=== PATIENT | female | born 1935 | race Caucasian/White ===

== ENCOUNTER → 2016-12-04 | Outpatient (CLI) | payer MEDICARE, OTHER ==
[2016-12-04 18:37] LABS: Basophils % (A) 1 %; CHCM 31.2; Eosinophils # (A) 0.1 k/uL (0-0.7); Eosinophils % (A) 1 %; HCT 34.4 % (34.0-46.0); HDW 2.76; HGB 10.2 gm/dL (11.4-16.0); Hypochromasia Slight; Luc % (Auto) 2; Lymphocytes # (A) 0.5 k/uL (1.0-4.8); Lymphocytes % (A) 8 %; MCH 30.6 pg (25.0-35.0); MCHC 29.7 g/dL (31.0-37.0); Macrocytosis Slight; Mean Platelet Volume 8.4; Monocytes # (A) 0.5 k/uL (0-1.0); Monocytes % (A) 8 %; Neutrophils # (A) 4.8 k/uL (1.3-7.7); Neutrophils % (A) 81 %; RBC 3.34 m/uL (3.80-5.40); RDW 14.4 % (11.5-15.5); WBC (Perox) 6.09
[2016-12-04 18:41] LABS: Uric Acid 9.6 mg/dL (3.7-7.4)
[2016-12-04 19:23] LABS: Erythrocyte Sedimentation Rate 107 mm/hr (0-20)
== END | disposition home or self-care (01) ==
LOC: LABMAIN 17:38
PROVIDERS: ATTEND Internal Medicine Hematology & Oncology
DX: E78.5 Hyperlipidemia, unspecified (principal); I10 Essential (primary) hypertension; E11.9 Type 2 diabetes mellitus without complications; I25.2 Old myocardial infarction
CPT/HCPCS: 36415; 83615; 84550; 85025; 85652

== ENCOUNTER → 2016-12-12 | Outpatient (CLI) | payer MEDICARE, OTHER ==
--- NOTE | 2016-12-14 16:03 | PE ---
Nuclear medicine PET/CT HISTORY: Hodgkin's lymphoma Patient received 11.8 mCi F-18 FDG intravenously. Delayed scanning performed from the skull base to t he mid thighs. Localization and attenuation correction CT scan was performed. No comparisons Neck and chest: Retro pectoral nodules are large on the right measuring 4 and 3 cm with greatest SUV approximately 9.3, there additional large axillary masses, the largest measuring 5.6 cm., SUV 17 8 Ex tensive superior mediastinal, mediastinal and hilar adenopathy is present bilaterally. SUV 9-10. Ther e is a left pleural effusion. Nodular density present in the right lower lobe measures 18 mm in the s ubpleural location, SUV 4.2, some smaller nodularity also present in the subpleural location without corresponding hypermetabolic uptake, in the subpleural location in the right middle lobe there is a n odule measuring 12 mm, SUV only 2.5. Some nodularity the left lung base adjacent to the pleural effus ion is present, there is prominence of the interstitium. Subpleural density in the left upper lobe an terolaterally measures 2.8 cm, SUV 5.2. There is emphysematous change within the lungs. Abdomen pelvis: In the portal region there are some soft tissue nodules present which are ill-defined , SUV is 4.6. Right lower quadrant hypermetabolic uptake may be related to colonic activity. IMPRESSION: Extensive adenopathy as described.
== END | disposition home or self-care (01) ==
LOC: RADPETMAIN 11:10
PROVIDERS: ATTEND Internal Medicine Hematology & Oncology
DX: C81.90 Hodgkin lymphoma, unspecified, unspecified site (principal); R59.1 Generalized enlarged lymph nodes
CPT/HCPCS: 78815; A9552

== ENCOUNTER 2016-12-18 17:53 | Inpatient (IN) | payer MEDICARE, OTHER ==
[2016-12-18] MEDS ORDERED: NITROGLYCERIN OINT 1 INCH/GM PACKET TOPICAL STA (18:23)
[2016-12-18] MEDS ORDERED: FUROSEMIDE 10 MG/ML 4 ML VIAL IV STA (18:23)
[2016-12-18] MEDS ORDERED: ASPIRIN 81 MG CHEW PO STA (18:25)
--- NOTE | 2016-12-18 18:32 | ED ---
SOB HPI - General Chief Complaint: Shortness of Breath Stated Complaint: Congestion Time Seen by Provider: 12/18/16 18:13 Source: patient, family Mode of arrival: wheelchair Limitations: no limitations - History of Present Illness Initial Comments: This 81-year-old white female presents with a complaint of difficulty in breathing. This has been present for approximately 4 days and has progressively worsened. She has had some exertional dyspnea as well as cough with slight whitish production and decreased energy. They complain of some lower extremity edema. She has had a 7 pound weight gain in the last 4 days. She saw her primary care physician 4 days ago and some blood work was done. Her creatinine apparently was 2.0 and her blood sugar was low. They apparently stopped her glipizide. Her blood pressure also was low and they stopped her blood pressure medications but it has subsequently increased. She apparently has a history of Hodgkin's lymphoma which was diagnosed on November 272016 via biopsy from a lesion in the right proximal arm. They have been following up with Dr. Gutiérrez from oncology. She just had a PET scan this past Wednesday with unknown results. She denies any fevers or chest pains. No other complaints or modifying factors. She does not have a history of DVT or PE. - Related Data Home Medications Medication Instructions Recorded Confirmed Isosorbide Mononitrate ER [Imdur] 30 mg PO DAILY 12/18/16 12/18/16 Lisinopril [Zestril] 2.5 mg PO Q48H 12/18/16 12/18/16 Loratadine [Claritin] 10 mg PO DAILY 12/18/16 12/18/16 Metoprolol Succinate (ER) [Toprol 50 mg PO DAILY 12/18/16 12/18/16 Xl] Pioglitazone [Actos] 30 mg PO DAILY 12/18/16 12/18/16 Simvastatin [Zocor] 20 mg PO HS 12/18/16 12/18/16 glipiZIDE [Glucotrol] 5 mg PO AC-BRKFST 12/18/16 12/18/16 Allergies Allergy/AdvReac Type Severity Reaction Status Date / Time No Known Allergies Allergy Verified 12/18/16 18:36 Review of Systems ROS Statement: Those systems with pertinent positive or pertinent negative responses have been documented in the HPI. ROS Other: All systems not noted in ROS Statement are negative. Past Medical History Past Medical History: Cancer, Heart Failure, Diabetes Mellitus, Hyperlipidemia, Hypertension, Myocardial Infarction ([place]) Additional Past Medical History / Comment(s): Hodgkins lymphoma History of Any Multi-Drug Resistant Organisms: None Reported Past Surgical History: Heart Catheterization With Stent Past Psychological History: No Psychological Hx Reported Smoking Status: Former smoker Past Alcohol Use History: None Reported Past Drug Use History: None Reported General Exam - General Exam Comments Initial Comments: GENERAL: The patient is well nourished and well hydrated. VITAL SIGNS: Heart rate, blood pressure, respiratory rate reviewed as recorded in nurse's notes. EYES: Pupils are round and reactive. Extraocular movements are intact. No conjunctival / lid redness or swelling. ENT: No external evidence of injury, swelling, or ecchymosis. Airway is patent. Throat is clear. NECK: Nontender. No swelling or evidence of injury. No subcutaneous emphysema. Trachea is midline. No thyroid mass. HEART: Regular rate and rhythm. Good peripheral pulses. There is some very minimal lower extremity edema noted bilaterally. LUNGS/CHEST: Breath sounds clear and equal bilaterally. No rales, rhonchi, or wheezes. No ecchymosis, subcutaneous emphysema, or tenderness. ABDOMEN: Abdomen soft without tenderness. No palpable masses or organomegaly. No peritoneal signs. No abdominal wall swelling or ecchymosis. EXTREMITIES: No extremity tenderness. Normal muscle tone and function. No thoracolumbar tenderness. NEUROLOGIC: Sensation is grossly intact. Cranial nerve exam reveals face is symmetrical, tongue is midline, speech is clear. SKIN: No abrasions or ecchymosis is noted. No induration or masses noted. PSYCHIATRIC: Alert and oriented. Appropriate behavior and judgment. Limitations: no limitations Course Vital Signs 12/18/16 12/18/16 17:58 19:19 Temperature 97.5 F L Pulse Rate 66 71 Respiratory 18 18 Rate Blood Pressure 121/58 141/96 O2 Sat by Pulse 85 L 92 L Oximetry Medical Decision Making - Medical Decision Making The patient was seen and examined. All diagnostics were reviewed. An EKG was done which shows a normal sinus rhythm at a rate of 71 with occasional PVC noted. There is no acute ST-T wave changes identified. The AK interval is 142 , QRS duration is 102, and the QTc interval is 443. Her pulse ox was quite low at 85% but did come up to 97% on oxygen. Her blood pressure was elevated at 182 /80. She is ordered aspirin as well as Nitropaste and some Lasix. The chest x- ray came back showing some infiltrate of changes with likely congestive heart failure and effusions. It is felt that this likely is more congestive heart failure but the possibility of underlying pneumonia cannot be ruled out. Levaquin is initiated. The laboratory has multiple abnormalities. She has not 8 much recently and her blood sugar was quite low at 43 and she receives 1 amp of D50. The d-dimer was elevated but her creatinine was elevated as well so IV dye was avoided and the computed tomography scan via PE protocol was not completed. Instead, she receives Lovenox and we will order a VQ scan for the a.m. The BNP is significantly elevated consistent with congestive heart failure. The recent PET scan was reviewed and this shows significant lymphadenopathy. Overall, it is felt as though the patient would require admission to the hospital for further treatment. Approximately 30 minutes critical care was utilized and the treatment of the patient. Case was discussed with Dr. Gonzalez from internal medicine and he is agreeable to admission. - Lab Data Result diagrams: 12/18/16 18:36 12/18/16 18:36 Lab Results 12/18/16 12/18/16 12/18/16 Range/Units 18:36 18:36 18:36 WBC 8.9 (3.8-10.6) k/uL RBC 3.35 L (3.80-5.40) m/uL Hgb 10.4 L (11.4-16.0) gm/dL Hct 32.3 L (34.0-46.0) % MCV 96.3 D (80.0-100.0) fL MCH 31.0 (25.0-35.0) pg MCHC 32.2 (31.0-37.0) g/dL RDW 15.4 (11.5-15.5) % Plt Count 385 (150-450) k/uL Neutrophils % 94 % Lymphocytes % 2 % Monocytes % 3 % Eosinophils % 1 % Basophils % 0 % Neutrophils # 8.3 H (1.3-7.7) k/uL Lymphocytes # 0.2 L (1.0-4.8) k/uL Monocytes # 0.2 (0-1.0) k/uL Eosinophils # 0.1 (0-0.7) k/uL Basophils # 0.0 (0-0.2) k/uL PT (9.0-12.0) sec INR (<1.1) APTT (22.0-30.0) sec D-Dimer (<0.60) mg/L FEU Sodium 128 L (137-145) mmol/L Potassium 5.0 (3.5-5.1) mmol/L Chloride 89 L (98-107) mmol/L Carbon Dioxide 29 (22-30) mmol/L Anion Gap 10 mmol/L BUN 49 H (7-17) mg/dL Creatinine 1.52 H (0.52-1.04) mg/dL Est GFR (MDRD) Af Amer 40 (>60 ml/min/1.73 sqM) Est GFR (MDRD) Non-Af 33 (>60 ml/min/1.73 sqM) Glucose 43 L* (74-99) mg/dL Calcium 12.2 H (8.4-10.2) mg/dL Magnesium 2.1 (1.6-2.3) mg/dL Total Bilirubin 0.7 (0.2-1.3) mg/dL AST 33 (14-36) U/L ALT 23 (9-52) U/L Alkaline Phosphatase 83 (38-126) U/L Total Creatine Kinase 35 (30-135) U/L CK-MB (CK-2) 1.9 (0.0-2.4) ng/mL CK-MB (CK-2) Rel Index 5.4 Troponin I 0.024 (0.000-0.034) ng/mL NT-Pro-B Natriuret Pep pg/mL Total Protein 7.3 (6.3-8.2) g/dL Albumin 3.1 L (3.5-5.0) g/dL 12/18/16 12/18/16 Range/Units 18:36 18:36 WBC (3.8-10.6) k/uL RBC (3.80-5.40) m/uL Hgb (11.4-16.0) gm/dL Hct (34.0-46.0) % MCV (80.0-100.0) fL MCH (25.0-35.0) pg MCHC (31.0-37.0) g/dL RDW (11.5-15.5) % Plt Count (150-450) k/uL Neutrophils % % Lymphocytes % % Monocytes % % Eosinophils % % Basophils % % Neutrophils # (1.3-7.7) k/uL Lymphocytes # (1.0-4.8) k/uL Monocytes # (0-1.0) k/uL Eosinophils # (0-0.7) k/uL Basophils # (0-0.2) k/uL PT 12.8 H (9.0-12.0) sec INR 1.3 (<1.1) APTT 18.9 L (22.0-30.0) sec D-Dimer 1.23 H (<0.60) mg/L FEU Sodium (137-145) mmol/L Potassium (3.5-5.1) mmol/L Chloride (98-107) mmol/L Carbon Dioxide (22-30) mmol/L Anion Gap mmol/L BUN (7-17) mg/dL Creatinine (0.52-1.04) mg/dL Est GFR (MDRD) Af Amer (>60 ml/min/1.73 sqM) Est GFR (MDRD) Non-Af (>60 ml/min/1.73 sqM) Glucose (74-99) mg/dL Calcium (8.4-10.2) mg/dL Magnesium (1.6-2.3) mg/dL Total Bilirubin (0.2-1.3) mg/dL AST (14-36) U/L ALT (9-52) U/L Alkaline Phosphatase (38-126) U/L Total Creatine Kinase (30-135) U/L CK-MB (CK-2) (0.0-2.4) ng/mL CK-MB (CK-2) Rel Index Troponin I (0.000-0.034) ng/mL NT-Pro-B Natriuret Pep 01842 pg/mL Total Protein (6.3-8.2) g/dL Albumin (3.5-5.0) g/dL Disposition Clinical Impression: Congestive heart failure, Pleural effusion, Acute respiratory failure, Hypoglycemia, Hyponatremia, Hypochloremia, Hypertension, Pneumonia, Elevated d- dimer, Hodgkins lymphoma, Anemia, Renal insufficiency, Hypochloremia Disposition: ADMITTED IP TO THIS HOSP Condition: Fair Time of Disposition: 19:43 Decision Date: 12/18/16 Decision Time: 19:43
[2016-12-18 18:50] LABS: Basophils % (A) 0 %; CH 31.6; Eosinophils # (A) 0.1 k/uL (0-0.7); Eosinophils % (A) 1 %; HCT 32.3 % (34.0-46.0); HDW 3.11; HGB 10.4 gm/dL (11.4-16.0); Luc # (Auto) 0.09; Luc % (Auto) 1; Lymphocytes # (A) 0.2 k/uL (1.0-4.8); Lymphocytes % (A) 2 %; MCHC 32.2 g/dL (31.0-37.0); Mean Platelet Volume 6.7; Monocytes # (A) 0.2 k/uL (0-1.0); Monocytes % (A) 3 %; Neutrophils # (A) 8.3 k/uL (1.3-7.7); Neutrophils % (A) 94 %; RBC 3.35 m/uL (3.80-5.40); RDW 15.4 % (11.5-15.5); WBC 8.9 k/uL (3.8-10.6); WBC (Perox) 9.55
[2016-12-18 18:53] LABS: MCV 96.3 fL (80.0-100.0)
[2016-12-18 18:59] LABS: INR 1.3 (<1.1); Prothrombin Time 12.8 sec (9.0-12.0)
[2016-12-18 19:04] LABS: Calcium 12.2 mg/dL (8.4-10.2); Magnesium 2.1 mg/dL (1.6-2.3); Total Bilirubin 0.7 mg/dL (0.2-1.3); Total Protein 7.3 g/dL (6.3-8.2)
--- NOTE | 2016-12-18 19:07 | XR ---
EXAMINATION TYPE: XR chest 2V DATE OF EXAM: 12/18/2016 6:57 PM COMPARISON: NONE HISTORY: Difficulty breathing and cough TECHNIQUE: Frontal and lateral views of the chest are obtained. FINDINGS: There are extensive bilateral pulmonary infiltrates with coalescent density in the left lo wer lobe. Heart is probably enlarged. Thoracic aorta is atheromatous. There is blunting of left costo phrenic angle. There is slight blunting also right costophrenic angle. Thoracic spine is intact. IMPRESSION: Bilateral pneumonic infiltrates and worse in the left lower lobe and lingula left upper lobe. Heart failure cannot be excluded. Atherosclerotic vascular disease. Bilateral pleural effusions enlarger on the left side.
[2016-12-18 19:11] LABS: Partial Thromboplastin Time 18.9 sec (22.0-30.0)
[2016-12-18] MEDS: DEXTROSE 50%-WATER 50 ML SYRINGE IVP STA (19:13)
[2016-12-18 19:20] LABS: Creatine Kinase MB 1.9 ng/mL (0.0-2.4); Troponin I 0.024 ng/mL (0.000-0.034)
[2016-12-18] MEDS ORDERED: LEVOFLOXACIN 750MG-D5W PMX 750 MG in DEXTROSE/WATER 1 150ML.BAG IVPB STA (19:33)
[2016-12-18] MEDS ORDERED: ENOXAPARIN 60 MG/0.6 ML SYRINGE SQ STA (19:34)
[2016-12-18] MEDS ORDERED: ASPIRIN 325 MG TAB PO STA (19:44)
[2016-12-18 20:11] LABS: Hemoglobin A1C 7.9 % (4.2-6.1)
[2016-12-18] MEDS: IPRATROPIUM-ALBUTEROL 3 ML NEB INHALATION SCH (20:22)
[2016-12-18 20:33] LABS: Glucose,Whole Blood 170 mg/dL (75-99)
[2016-12-18] MEDS: INSULIN LISPRO (humaLOG) 300 UNIT/3 ML VIAL SQ SCH (23:48)
[2016-12-19] MEDS: IPRATROPIUM-ALBUTEROL 3 ML NEB INHALATION SCH ×6 (00:13→19:25)
[2016-12-19] MEDS: NITROGLYCERIN OINT 1 INCH/GM PACKET TOPICAL SCH ×2 (00:16→08:47)
[2016-12-19] MEDS: ATORVASTATIN 10 MG TAB PO SCH ×2 (00:16→22:15)
[2016-12-19 03:03] LABS: Creatine Kinase MB 1.7 ng/mL (0.0-2.4); Troponin I 0.024 ng/mL (0.000-0.034)
[2016-12-19] MEDS: FUROSEMIDE 10 MG/ML 4 ML VIAL IV SCH ×2 (06:06→17:30)
[2016-12-19 07:17] LABS: Glucose,Whole Blood 40 mg/dL (75-99)
[2016-12-19 07:26] LABS: Glucose,Whole Blood 46 mg/dL (75-99)
[2016-12-19] MEDS: INSULIN LISPRO (humaLOG) 300 UNIT/3 ML VIAL SQ SCH ×4 (07:40→22:15)
[2016-12-19] MEDS: DEXTROSE 50%-WATER 50 ML SYRINGE IVP STA (07:42)
[2016-12-19 07:55] LABS: Creatine Kinase MB 1.9 ng/mL (0.0-2.4); Troponin I 0.024 ng/mL (0.000-0.034)
[2016-12-19 08:26] LABS: Glucose,Whole Blood 122 mg/dL (75-99)
[2016-12-19] MEDS: METOPROLOL SUCCINATE (ER) 50 MG TAB.ER.24H PO SCH (08:47)
[2016-12-19] MEDS: ENOXAPARIN 60 MG/0.6 ML SYRINGE SQ SCH (08:47)
[2016-12-19] MEDS: LORATADINE 10 MG TAB PO SCH (08:47)
--- NOTE | 2016-12-19 09:49 | NM ---
EXAMINATION TYPE: NM pul vent and perfuse DATE OF EXAM: 12/19/2016 9:43 AM COMPARISON: Radiographs 12/18/2016 HISTORY: 81-year-old male with shortness of breath TECHNIQUE: Utilizing inhalation of 64.1 mCi Tc 99m DTPA aerosol and intravenous injection of 4.9 mCi of Tc 99m MAA, ventilation and perfusion images are acquired post injection in multiple projections. FINDINGS: There is marked heterogeneity in ventilation and perfusion with a number of small to moderate size ma tched ventilation and perfusion defects on both sides and relatively less ventilation and perfusion t hroughout the entire left lung. Correlating with the chest radiograph, there is also a triple matched defect at the left base due to the presence of a pleural effusion. IMPRESSION: Intermediate probability for pulmonary embolus based on PIOPED 2 criteria.
--- NOTE | 2016-12-19 10:20 | CONS ---
DATE OF CONSULTATION: Attending Dr. Merida. Mrs. Mckenzie is an 81-year-old female with known history of coronary artery disease, status post anterior myocardial infarction about 20 years ago, history of ischemic cardiomyopathy that has been stable, who in November of this year was diagnosed with non-Hodgkin lymphoma has been followed by Dr. Gutiérrez, underwent PET scan a week ago and is scheduled to be seen by Dr. Gutiérrez next Wednesday for further evaluation. She presented to the emergency room with symptoms of progressive dyspnea, cough and weight gain. She denies any chest pain. She denies any dizziness or palpitations. She has some peripheral edema. No clear PND or orthopnea. Prior to this event, she has been doing reasonably well from the cardiac standpoint. She has a history of aortic stenosis, that has been stable. She has no history of malignant arrhythmia or recent admission for congestive heart failure. Her coronary risk factors are positive for history of hypertension, hyperlipidemia, and diabetes mellitus. She is a nonsmoker. Her medications include isosorbide mononitrate 30 mg daily, lisinopril 2.5 mg q.48 hours, loratadine, metoprolol succinate 50 mg daily, glipizide, Actos and simvastatin. REVIEW OF SYSTEMS: RESPIRATORY SYSTEM: She has dyspnea and mild cough. No fever. GI SYSTEM: No recent GI bleeding. No peptic ulcer disease. SYSTEM: No dysuria or hematuria. NERVOUS SYSTEM: No stroke or seizure. CONSTITUTIONAL SYMPTOMS: She had weight loss up to recently. PHYSICAL EXAMINATION: She is an 81-year-old female, alert, oriented, in no apparent distress. Blood pressure 124/59 with the heart rate in the 60s. HEAD: Normocephalic. EYES: Sclerae anicteric. NECK: Good carotid upstroke with transmitted murmur. LUNGS: No rales appreciated. HEART: Regular rate rhythm. S1, S2, no S3, with systolic murmur 3/6, mid peaking. No diastolic murmur. No rub. ABDOMEN: Soft, nontender. EXTREMITIES: No edema. Lab data revealed hemoglobin 10.4. D-dimer 1.23. BUN and creatinine 49 and 1.52. Potassium 5.0, sodium 128. NT-proBNP of 14,800. Troponin 0.024 for 3 samples. Calcium of 12.2. EKG revealed a sinus mechanism, rare PVCs with evidence of anterior myocardial infarction. Chest x-ray shows cardiomegaly with bilateral pneumonic infiltrate possible congestion. IMPRESSION: 1. Progressive dyspnea with cough, could be a combination of respiratory infection on top of heart failure with systolic dysfunction. 2. History of coronary artery disease, status post myocardial infarction. No evidence of acute ischemic event. 3. History of ischemic cardiomyopathy. 4. History of aortic stenosis. 5. Renal failure. 6. ( ) lymphoma. 7. Diabetes. 8. Hyperlipidemia. RECOMMENDATIONS: From the cardiac standpoint, will continue intravenous diuretic for another 24 hours. I will reinitiate the treatment with her beta sully. I will stop her nitrate at this time. Will repeat her echocardiogram. Patient is on antibiotics for possible infectious process. We will await the input of Dr. Gutiérrez regarding her overall status. The D-dimer elevation is of unclear etiology. The patient is scheduled to undergo ventilation perfusion scan and depending on that, further recommendation will be made. Thank you for this consult. We will follow with you.
--- NOTE | 2016-12-19 12:05 | P.HPIM ---
History of Present Illness H&P Date: 12/19/16 An 81-year-old female presented on the day of admission to the emergency room to be evaluated for chief complaint of developing progressive shortness of breath symptomatic. Patient stated it started several days prior with any exertion felt short of breath with decreased endurance. Additionally patient stated that over the last several days she had put on 7 pounds noted increase edema involving the bilateral lower extremities. Patient does report that she did see her primary care provider Dr. sexton. Patient stated at that time lab work was done apparently her creatinine was to the blood sugars were running low. They recommended that she stopped taking her glipizide. Additionally patient has a history of Hodgkin's lymphoma was diagnosed 11/27/2016 DL biopsy from the lesion in the right arm. Patient has an appointment this coming Wednesday to follow-up with the oncologist Dr. Gutiérrez. Additionally patient is asking for the results on the PET scan that she had recently done. Patient does not give a history of having a prior DVT or pulmonary emboli. Patient has been seen by cardiology service this morning. Additionally the VQ scan results showed intermediate probability for pulmonary embolus Patient states feels generalized fatigue tired out is anxious to hear the repeat results from the PET scan Review of Systems Essentially unremarkable except as mentioned in the present illness Past Medical History Past Medical History: Cancer, Heart Failure, Diabetes Mellitus, Hyperlipidemia, Hypertension, Myocardial Infarction ([place]) Additional Past Medical History / Comment(s): Hodgkins lymphoma Last Myocardial Infarction Date:: 1995 History of Any Multi-Drug Resistant Organisms: None Reported Past Surgical History: Heart Catheterization With Stent Past Anesthesia/Blood Transfusion Reactions: No Reported Reaction Date of Last Stent Placement:: 1995 Past Psychological History: No Psychological Hx Reported Smoking Status: Former smoker Past Alcohol Use History: None Reported Past Drug Use History: None Reported Medications and Allergies Home Medications Medication Instructions Recorded Confirmed Type Isosorbide Mononitrate ER [Imdur] 30 mg PO DAILY 12/18/16 12/18/16 History Lisinopril [Zestril] 2.5 mg PO Q48H 12/18/16 12/18/16 History Loratadine [Claritin] 10 mg PO DAILY 12/18/16 12/18/16 History Metoprolol Succinate (ER) [Toprol 50 mg PO DAILY 12/18/16 12/18/16 History Xl] Pioglitazone [Actos] 30 mg PO DAILY 12/18/16 12/18/16 History Simvastatin [Zocor] 20 mg PO HS 12/18/16 12/18/16 History glipiZIDE [Glucotrol] 5 mg PO AC-BRKFST 12/18/16 12/18/16 History Allergies Allergy/AdvReac Type Severity Reaction Status Date / Time No Known Allergies Allergy Verified 12/18/16 18:36 Physical Exam Vitals: Vital Signs Temp Pulse Pulse Resp BP BP Pulse Ox 12/19/16 08:00 96.9 F L 68 18 124/59 97 12/19/16 04:00 96.9 F L 64 20 122/59 91 L 12/19/16 00:23 64 12/19/16 00:13 64 12/19/16 00:00 96.8 F L 60 20 104/55 97 12/18/16 20:40 96.9 F L 74 22 121/58 96 12/18/16 20:31 64 12/18/16 20:25 64 12/18/16 20:21 96.9 F L 50 L 20 93/51 94 L Intake and Output 12/18/16 12/19/16 12/19/16 22:59 06:59 14:59 Intake Total 100 Output Total 500 Balance 100 -500 Intake: IV 100 Levofloxacin 500Mg-D5w 100 Pmx 500 mg In Dextrose/ Water 1 100ml.bag @ 100 mls/hr IVPB Q24H [facility] Rx#: [id number] Output: Urine 500 Other: Voiding Method Bedside Commode Bedside Commode # Voids 1 0 # Bowel Movements 0 Weight 50.7 kg 50.7 kg GENERAL APPEARANCE: 81-year-old female pale sitting up in a chair patient is alert, oriented, in no acute distress. Chief complaint tired out VITAL SIGNS: Reviewed HEENT: Head is normocephalic and atraumatic. Pupils are equal and reactive. The nares are patent. Oropharynx is clear without lesions. NECK: Supple without lymphadenopathy. Traches midline. HEART: S1, S2. Regular rate and rhythm positive systolic murmur noted. Monitor sinus rhythm denying chest pain when questioning no heart palpitation LUNGS: Posterior diminished at the bases upper airways bronchial breath sounds ABDOMEN: Soft, nontender, nondistended with good bowel sounds. No peritoneal signs. No palpable organomegaly or masses. EXTREMITIES: Normal skin color and turgor. No cyanosis, rash, ulceration, clubbing or edema. Radial pedal pulses are 2/4 bilaterally. NEUROLOGICAL: No focal deficits. Strength and sensation are grossly intact. Results CBC & Chem 7: 12/18/16 18:36 12/18/16 18:36 Labs: Abnormal Lab Results - Last 24 Hours (Table) 12/18/16 12/19/16 12/19/16 Range/Units 20:31 07:05 07:25 POC Glucose (mg/dL) 170 H 40 L 46 L (75-99) mg/dL 12/19/16 Range/Units 08:23 POC Glucose (mg/dL) 122 H (75-99) mg/dL Thrombosis Risk Factor Assmnt - Choose All That Apply Each Risk Factor Represents 3 Points: Age 75 years or older Thrombosis Risk Factor Assessment Total Risk Factor Score: 3 Thrombosis Risk Factor Assessment Level: Moderate Risk Assessment and Plan Plan: Impression Present on admission progressive symptomatic shortness of breath multifactorial exacerbation systolic congestive heart failure with an abnormal VQ scan with respiratory infection not ruled out Known history of valvular heart disease aortic stenosis Recently diagnosed with Hodgkin's lymphoma History of coronary artery disease prior [place] Hypertension essential Present on admission BNP elevated 14,800 Present on admission acute renal failure Type 2 diabetes non-insulin requiring hemoglobin A1c 7.9 Present on admission electrolyte abnormality hyponatremia, hyperkalemia Hyperlipidemia Elevated d-dimer with the VQ scan intermediate probability for pulmonary emboli based on pioped 2 criteria Plan Consult pulmonology eval abnormal VQ scan Continue recommendations by cardiology service Await further input by oncology Dr. Gutiérrez consult pending Per cardiology's recommendations repeat the echocardiogram follow up on results Per cardiology's recommendations beta sully therapy will be initiated Further recommendations pending Restart home meds as appropriate DVT and GI prophylaxis The above dictated assessment and findings were discussed with dr gagan Javed and the plan of care have been dictated as directed. Arlen Dorsey nurse practitioner acting as a scribe for dr farah
[2016-12-19 12:09] LABS: Glucose,Whole Blood 125 mg/dL (75-99)
--- NOTE | 2016-12-19 12:17 | P.CONS ---
History of Present Illness - Reason for Consult Consult date: 12/19/16 New diagnosis Hodgkin's lymphoma - Chief Complaint Shortness of breath - History of Present Illness The patient is an 81-year-old lady, who had presented in late 10/09 with complains of a mass in the right armpit area. This apparently had been present for about 2-3 months and had grown slowly in size. She had an ultrasound done of the right axilla, on 10/23/16, which revealed multiple lymph nodes. She subsequently had a lymph node biopsy, which was positive for classical Hodgkin' s lymphoma. The patient was seen by Dr. Gutiérrez, and is currently in the process of being worked up prior to starting treatment. She has not started any chemotherapy yet. She had a PET scan done on 12/12/16, which revealed at least stage III disease with uptake in multiple lymph node stations both above and below the diaphragm. The patient does follow up with cardiology, and had been referred back to them for prechemotherapy evaluation including echocardiogram. I do not believe that she had followed up yet. The patient was admitted to the ER because of difficulty in breathing started about 4 days ago and had worsened progressively. This was associated with generalized weakness, as well as an intermittent cough with whitish sputum. She did also noted some lower extremity swelling off and on and weight gain. She was seen recently by her primary care physician and was noted to have low blood sugar and high creatinine. Chest x-ray in the ER showed bilateral infiltrates, as well as bilateral pleural effusions larger on the left side. She had a VQ scan done which showed intermediate probability for PE. She was therefore admitted for further management. Review of Systems Constitutional: Reports fatigue, Reports weakness Eyes: denies blurred vision, denies pain Ears: bilateral: decreased hearing, deny: ear discharge, earache, tinnitus Ears, nose, mouth and throat: Denies headache, Denies sore throat Cardiovascular: Reports edema, Reports orthopnea, Reports shortness of breath Respiratory: Reports cough with sputum, Reports dyspnea Gastrointestinal: Denies abdominal pain, Denies diarrhea, Denies nausea, Denies vomiting Genitourinary: Denies dysuria, Denies hematuria Menstruation: Reports postmenopausal Musculoskeletal: Reports muscle weakness Integumentary: Denies pruritus, Denies rash Neurological: Reports weakness Psychiatric: Denies anxiety, Denies depression Endocrine: Reports low blood sugars, Denies fatigue, Denies weight change Hematologic/Lymphatic: Reports as per HPI, Reports lymphadenopathy Past Medical History Past Medical History: Cancer, Heart Failure, Diabetes Mellitus, Hyperlipidemia, Hypertension, Myocardial Infarction ([place]) Additional Past Medical History / Comment(s): Hodgkins lymphoma Last Myocardial Infarction Date:: 1995 History of Any Multi-Drug Resistant Organisms: None Reported Past Surgical History: Heart Catheterization With Stent Past Anesthesia/Blood Transfusion Reactions: No Reported Reaction Date of Last Stent Placement:: 1995 Past Psychological History: No Psychological Hx Reported Smoking Status: Former smoker Past Alcohol Use History: None Reported Past Drug Use History: None Reported Medications and Allergies Home Medications Medication Instructions Recorded Confirmed Type Isosorbide Mononitrate ER [Imdur] 30 mg PO DAILY 12/18/16 12/18/16 History Lisinopril [Zestril] 2.5 mg PO Q48H 12/18/16 12/18/16 History Loratadine [Claritin] 10 mg PO DAILY 12/18/16 12/18/16 History Metoprolol Succinate (ER) [Toprol 50 mg PO DAILY 12/18/16 12/18/16 History Xl] Pioglitazone [Actos] 30 mg PO DAILY 12/18/16 12/18/16 History Simvastatin [Zocor] 20 mg PO HS 12/18/16 12/18/16 History glipiZIDE [Glucotrol] 5 mg PO AC-BRKFST 12/18/16 12/18/16 History Allergies Allergy/AdvReac Type Severity Reaction Status Date / Time No Known Allergies Allergy Verified 12/18/16 18:36 Physical Exam Vitals: Vital Signs Temp Pulse Pulse Resp BP BP Pulse Ox 12/19/16 08:00 96.9 F L 68 18 124/59 97 12/19/16 04:00 96.9 F L 64 20 122/59 91 L 12/19/16 00:23 64 12/19/16 00:13 64 12/19/16 00:00 96.8 F L 60 20 104/55 97 12/18/16 20:40 96.9 F L 74 22 121/58 96 12/18/16 20:31 64 12/18/16 20:25 64 12/18/16 20:21 96.9 F L 50 L 20 93/51 94 L Intake and Output 12/18/16 12/19/1617 22:59 06:59 14:59 Intake Total 100 Output Total 500 Balance 100 -500 Intake: IV 100 Levofloxacin 500Mg-D5w 100 Pmx 500 mg In Dextrose/ Water 1 100ml.bag @ 100 mls/hr IVPB Q24H [facility] Rx#: [id number] Output: Urine 500 Other: Voiding Method Bedside Commode Bedside Commode # Voids 1 0 # Bowel Movements 0 Weight 50.7 kg 50.7 kg - Constitutional General appearance: mild distress - EENT Eyes: EOMI, PERRLA ENT: hearing grossly normal, normal oropharynx - Neck Neck: no lymphadenopathy Thyroid: bilateral: normal size - Respiratory Respiratory: bilateral: diminished - Cardiovascular Rhythm: regular Heart sounds: normal: S1, S2 - Gastrointestinal General gastrointestinal: normal bowel sounds, soft - Integumentary Integumentary: normal - Neurologic Neurologic: CNII-XII intact - Musculoskeletal Musculoskeletal: generalized weakness, strength equal bilaterally - Psychiatric Psychiatric: A&O x's 3, appropriate affect Results CBC & Chem 7: 12/18/16 18:36 12/18/16 18:36 Labs: Abnormal Lab Results - Last 24 Hours (Table) 12/18/16 12/19/16 12/19/16 Range/Units 20:31 07:05 07:25 POC Glucose (mg/dL) 170 H 40 L 46 L (75-99) mg/dL 12/19/16 Range/Units 08:23 POC Glucose (mg/dL) 122 H (75-99) mg/dL Chest x-ray: report reviewed (PET scan report reviewed. V/Q scan report reviewed) Assessment and Plan (1) Congestive heart failure Narrative/Plan: At the time of admission there was some concern for a pulmonary embolus. The V/Q characteristics are felt to be intermediate probability, but the noted defects are not targeted totally typical for a PE. The patient does have bilateral pleural effusions. The case was discussed with the admitting service. They also feel that congestive heart failure appears to be more likely. She is being evaluated by cardiology. At the time of my evaluation she was getting an echocardiogram done. The echo cardiographic appearance was discussed with the the tech. There appears to be no evidence of any pericardial effusion. Each fraction did appear to be reduced. Defer to the admitting service and cardiology for further management. Status: Acute (2) Hodgkins lymphoma Narrative/Plan: The patient has a recent diagnosis, with at least stage III disease. As her performance status was fairly well maintained up to this admission, the plan was to treat her actively. The typical regimen would be ABVD. However, if her ejection fraction is found to be compromise, Adriamycin cannot be used. Therefore we would need to modify the treatment plan, assuming of course, that the patient is able to recover in a satisfactory manner from her acute event Status: Acute
--- NOTE | 2016-12-19 15:20 | ECHOF ---
Referral Reason:Heart Failure MEASUREMENTS -------- HEIGHT: 149.9 cm WEIGHT: 50.4 kg BP: 122/59 RVIDd: 3.1 cm (< 3.3) IVSd: 1.3 cm (0.6 - 1.1) LVIDd: 4.2 cm (3.9 - 5.3) LVPWd: 1.3 cm (0.6 - 1.1) IVSs: 2.0 cm LVIDs: 2.7 cm LVPWs: 1.8 cm LA Diam: 3.8 cm (2.7 - 3.8) LAESV Index (A-L): 59.36 ml/m Ao Diam: 2.9 cm (2.0 - 3.7) AV Cusp: 1.4 cm (1.5 - 2.6) MV EXCURSION: 12.755 mm (> 18.000) MV EF SLOPE: 61 mm/s (70 - 150) EPSS: 0.6 cm MV E Mitchell: 1.12 m/s MV DecT: 225 ms MV A Mitchell: 0.85 m/s MV E/A Ratio: 1.32 AV maxP.35 mmHg AV meanP.29 mmHg RAP: 5.00 mmHg RVSP: 46.99 mmHg FINDINGS -------- Sinus rhythm. This was a technically good study. The left ventricular size is normal. There is mild concentric left ventricular hypertrophy. Overall left ventricular systolic function is moderately impaired with, an EF between 35 - 40 %. Mid anterior LV wall motion is akinetic. Apical anterior LV wall motion is akinetic. Apical lateral LV wall motion is akinetic. Apical inferior LV wall motion is akinetic. Apical septum LV wall motion is akinetic. The right ventricle is normal in size. LA is severely dilated >40 ml/m2 The right atrium is normal in size. Aortic valve is trileaflet and is severely thickened. There is vgybivsv-eu-amorqh aortic stenosis present. Peak/mean gradient across the Aortic Valve is 64.35mmHg / 37.29mmHg. Mild mitral annular calcification present. Mild mitral regurgitation is present. Mild tricuspid regurgitation present. There is moderate pulmonary hypertension. The right ventricular systolic pressure, as measured by Doppler, is 46.99mmHg. Trace/mild (physiologic) pulmonic regurgitation. The aortic root size is normal. The inferior vena cava is mildly dilated. There is no pericardial effusion. Small Pleural Effusion. CONCLUSIONS -------- 1. Sinus rhythm. 2. LA is severely dilated >40 ml/m2 3. The right atrium is normal in size. 4. Aortic valve is trileaflet and is severely thickened. 5. There is oboninre-la-gowwpu aortic stenosis present. 6. Peak/mean gradient across the Aortic Valve is 64.35mmHg / 37.29mmHg. 7. Mild mitral annular calcification present. 8. Mild mitral regurgitation is present. 9. Mild tricuspid regurgitation present. 10. There is moderate pulmonary hypertension. 11. Trace/mild (physiologic) pulmonic regurgitation. 12. This was a technically good study. 13. The aortic root size is normal. 14. The inferior vena cava is mildly dilated. 15. There is no pericardial effusion. 16. Small Pleural Effusion. 17. There is mild concentric left ventricular hypertrophy. 18. Overall left ventricular systolic function is moderately impaired with, an EF between 35 - 40 %. 19. Mid anterior LV wall motion is akinetic. 20. Apical anterior LV wall motion is akinetic. 21. Apical lateral LV wall motion is akinetic. 22. Apical septum LV wall motion is akinetic. 23. The right ventricle is normal in size. GLASS ETCHER: Iris Witt RDCS
[2016-12-19 16:42] LABS: Glucose,Whole Blood 168 mg/dL (75-99)
--- NOTE | 2016-12-19 17:57 | P.CNPUL ---
History of Present Illness Consult date: 12/19/16 Reason for consult: dyspnea History of present illness: This is an 81-year-old female patient with known history of coronary artery disease, moderate severe aortic stenosis and a congestion heart failure with an ejection fraction of 35-40% who was also recently diagnosed having Hodgkin's lymphoma. Note that the patient presented with extensive right axillary lymphadenopathy and a biopsy of the lymph node confirmed the presence of Hodgkin 's lymphoma. At that point the patient was referred to oncology and a PET scan was done that showed extensive superior mediastinal, and hilar lymphadenopathy in addition to large axillary masses/lymph nodes. There was also a left-sided pleural effusion and nodular density present in the right lower lobe measuring 1.8 cm and smaller nodularities present in the subpleural location without corresponding metabolic uptake. Some nodularity in the left lung was also seen adjacent to the pleural effusion. There was also some background emphysema noted and some nodules were also present within the portal region consistent with Hodgkin's lymphoma. The patient has not been started on treatment yet. I had a chance to interview the patient's daughter was at the bedside. She tells that her health in general has been progressively getting worse. Probably more than a month ago the patient was able to walk and move around and perform activities of daily life and her performance status has gotten progressively worse. She is losing weight. At this point she gets short of breath with ligament amount of activity and she presented to the hospital because of increased cough, chest congestion, wheezing. She denied having any chest pain. No fever chills or night sweats. She is producing clear to yellowish sputum. No cardiac arrhythmias have been noted. Note that she was also found to be in acute kidney injury in the creatinine was at 1.5. She is on oral hypoglycemic agents and she was having prolonged hypoglycemic events. She is a chronic smoker. No change in mental status. No seizure activity. Other comorbid conditions include hypertension and hyperlipidemia and diabetes mellitus. The patient is already been seen by cardiology and echocardiogram was repeated and the patient was started on IV Lasix suspecting an underlying component of CHF. Note that her admission sodium level was 128, renal function showed a creatinine of 1.5, proBNP level was at 14,800. Troponin is were mainly elevated at 0.02 respectively twice. Review of Systems Review of system was done and the positive findings are almost above history of present illness Past Medical History Past Medical History: Cancer, Heart Failure, Diabetes Mellitus, Hyperlipidemia, Hypertension, Myocardial Infarction ([place]) Additional Past Medical History / Comment(s): Coronary artery disease with previous coronary intervention and stenting, moderate to severe aortic stenosis , congestion heart failure with an ejection fraction of 35%, height changes lymphoma, diabetes mellitus, hypertension, hyperlipidemia Last Myocardial Infarction Date:: 1995 History of Any Multi-Drug Resistant Organisms: None Reported Past Surgical History: Heart Catheterization With Stent Additional Past Surgical History / Comment(s): Lymph node biopsy, coronary intervention with PCI and stenting Past Anesthesia/Blood Transfusion Reactions: No Reported Reaction Date of Last Stent Placement:: 1995 Past Psychological History: No Psychological Hx Reported Smoking Status: Former smoker Past Alcohol Use History: None Reported Past Drug Use History: None Reported Medications and Allergies Home Medications Medication Instructions Recorded Confirmed Type Isosorbide Mononitrate ER [Imdur] 30 mg PO DAILY 12/18/16 12/18/16 History Lisinopril [Zestril] 2.5 mg PO Q48H 12/18/16 12/18/16 History Loratadine [Claritin] 10 mg PO DAILY 12/18/16 12/18/16 History Metoprolol Succinate (ER) [Toprol 50 mg PO DAILY 12/18/16 12/18/16 History Xl] Pioglitazone [Actos] 30 mg PO DAILY 12/18/16 12/18/16 History Simvastatin [Zocor] 20 mg PO HS 12/18/16 12/18/16 History glipiZIDE [Glucotrol] 5 mg PO AC-BRKFST 12/18/16 12/18/16 History Allergies Allergy/AdvReac Type Severity Reaction Status Date / Time No Known Allergies Allergy Verified 12/18/16 18:36 Physical Exam Vitals: Vital Signs Temp Pulse Pulse Resp BP BP Pulse Ox 12/19/16 16:29 64 12/19/16 16:15 68 12/19/16 16:00 98.0 F 68 18 97/47 97 12/19/16 12:12 64 12/19/16 12:00 96.9 F L 68 18 121/69 96 12/19/16 11:59 64 12/19/16 08:00 96.9 F L 68 18 124/59 97 12/19/16 04:00 96.9 F L 64 20 122/59 91 L 12/19/16 00:23 64 12/19/16 00:13 64 12/19/16 00:00 96.8 F L 60 20 104/55 97 12/18/16 20:40 96.9 F L 74 22 121/58 96 12/18/16 20:31 64 12/18/16 20:25 64 12/18/16 20:21 96.9 F L 50 L 20 93/51 94 L Intake and Output 12/19/16 12/19/16 12/19/16 06:59 14:59 22:59 Output Total 500 500 Balance -500 -500 Output: Urine 500 500 Other: Voiding Method Bedside Commode Bedside Commode Indwelling Catheter # Voids 1 0 # Bowel Movements 0 Weight 50.7 kg Head exam was generally normal. There was no scleral icterus or corneal arcus. Mucous membranes were moist.Neck was supple and without jugular venous distension, thyromegaly, or carotid bruits. Carotids were easily palpable bilaterally. There was no adenopathy. Lung sounds are diminished bilaterally along with that there is diffuse extremity wheezes throughout the lung longoria bilaterally and breath sounds are specifically diminished in the left lung base along with some dullness to percussion. Heart sounds are irregular, there is severe and grade 4/6 systolic ejection murmur heard throughout the precordium. Murmurs radiating to the neck.Abdominal exam revealed normal bowel sounds. The abdomen was soft, non-tender, and without masses, organomegaly, or appreciable enlargement of the abdominal aorta.Examination of the extremities revealed easily palpable radial, femoral and pedal pulses. There was no cyanosis, clubbing or edema. The patient has trace edema in lower oximetry is bilaterally. Examination of the skin shows extensive right axillary lymphadenopathy and the lymph nodes are quite large and firm and bulky. Results - Laboratory Findings CBC and BMP: 12/18/16 18:36 12/18/16 18:36 PT/INR, D-dimer PT 12.8 sec (9.0-12.0) H 12/18/16 18:36 INR 1.3 (<1.1) 12/18/16 18:36 D-Dimer 1.23 mg/L FEU (<0.60) H 12/18/16 18:36 Abnormal lab findings: Abnormal Labs 12/18/16 12/19/16 12/19/16 20:31 07:05 07:25 POC Glucose (mg/dL) 170 H 40 L 46 L 12/19/16 12/19/16 12/19/16 08:23 11:59 16:31 POC Glucose (mg/dL) 122 H 125 H 168 H - Diagnostic Findings Chest x-ray: image reviewed Assessment and Plan Plan: Assessment 1 dyspnea/hypoxemia, subacute with progressive worsening in respiratory status and genital. Chest x-ray that was done in the emergency department showed bilateral infiltrates worse on the left along with some left-sided pleural effusion and limited right-sided pleural effusion. Suspect a component of CHF in conjunction with possible pneumonia and at this point a postobstructive pneumonia needs to be considered especially the patient is bulky mediastinal lymphadenopathy involving lymph nodes along the left hilum 2 Hodgkin's lymphoma with bulky axillary and mediastinal lymphadenopathy. The patient has also scattered subpleural and pulmonary nodules which have shown uptake along with a left-sided pleural effusion and this can be POTENTIALLY manifestations of Hodgkin's lymphoma. One concern is that the left hilar and infrahilar lymph nodes are causing mass effect and obstruction of the left lower lobe bronchus leading into a postobstructive pneumonia. 3 CHF with an ejection fraction of 35% 4 moderate severe aortic stenosis 5 coronary artery disease. 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 The patient is on IV Lasix every 12 hours. I would suggest covering this patient with a broad-spectrum antibiotics and I would suggest putting her on IV Zosyn for now with the potential of an obstructive/postobstructive pneumonia and left lower lobe. The patient will be also raised on IV Solu-Medrol knowing that she has underlying COPD which Is currently exacerbating as the patient has signs of active bronchospasm wheezing. The steroids may also cause some effect on the underlying Hodgkin's lymphoma. Repeat chest x-ray with the next 24-48 hours. The patient has a poor performance and functional status and I am not sure she will be a candidate for systemic chemotherapy for Hodgkins lymphoma
[2016-12-19] MEDS: methylPREDNISolone SOD SUCCI 125 MG/2 ML VIAL IV SCH (18:28)
[2016-12-19] MEDS: LEVOFLOXACIN 500MG-D5W PMX 500 MG in DEXTROSE/WATER 1 100ML.BAG IVPB SCH (18:28)
[2016-12-19 21:16] LABS: Glucose,Whole Blood 162 mg/dL (75-99)
[2016-12-19] MEDS: PIPERACILLIN-TAZOBACTAM 3.375 GM in DEXTROSE/WATER 1 50ML.BAG IVPB SCH (22:15)
[2016-12-20] MEDS: PIPERACILLIN-TAZOBACTAM 3.375 GM in DEXTROSE/WATER 1 50ML.BAG IVPB SCH ×3 (00:14→16:28)
[2016-12-20] MEDS: methylPREDNISolone SOD SUCCI 125 MG/2 ML VIAL IV SCH ×4 (00:15→17:33)
[2016-12-20] MEDS: IPRATROPIUM-ALBUTEROL 3 ML NEB INHALATION SCH ×6 (00:24→20:41)
[2016-12-20] MEDS: FUROSEMIDE 10 MG/ML 4 ML VIAL IV SCH (06:04)
[2016-12-20 06:15] LABS: Glucose,Whole Blood 191 mg/dL (75-99)
[2016-12-20 06:43] LABS: Calcium 12.5 mg/dL (8.4-10.2); Potassium 5.3 mmol/L (3.5-5.1)
[2016-12-20] MEDS: INSULIN LISPRO (humaLOG) 300 UNIT/3 ML VIAL SQ SCH ×4 (06:54→22:11)
[2016-12-20] MEDS ORDERED: LISINOPRIL 2.5 MG TAB PO SCH (09:00)
[2016-12-20] MEDS: ASPIRIN 81 MG CHEW PO SCH (09:05)
[2016-12-20] MEDS: ENOXAPARIN 60 MG/0.6 ML SYRINGE SQ SCH (09:05)
[2016-12-20] MEDS: METOPROLOL SUCCINATE (ER) 50 MG TAB.ER.24H PO SCH (09:05)
[2016-12-20] MEDS: LORATADINE 10 MG TAB PO SCH (09:05)
--- NOTE | 2016-12-20 10:59 | P.PN ---
Subjective -81 year-old female being seen resting in bed is arousable to verbal stimuli daughter asleep in the chair Patient's initial presentation to the emergency room for chief complaint of developing shortness of breath symptomatic.. With activities of daily living with inability to participate area additionally patient stated that she decreased endurance. Patient is being worked up for newly diagnosed Hodgkin's lymphoma diagnosed November 27 with biopsies involving the right arm. Patients being followed by hematology oncology cardiology and pulmonary service. Patient had an echocardiogram done yesterday showed left ventricular systolic function moderately impaired EF 35-40% with moderate to severe aortic stenosis noted patient was seen yesterday by Dr. Moses oncology given. The ejection fraction is compromised the typical regime for treatment of non-Hodgkin's lymphoma will need to be addressed by hematology service . Patient has poor performance function status hematology will need to decide if the patient is a candidate for systemic chemotherapy for Hodgkin's lymphoma Pulmonology recommendations reviewed noted and appreciated. Objective - Vital Signs Vital signs: Vital Signs Temp 96.8 F L 12/20/16 04:00 Pulse 70 12/20/16 04:00 Resp 18 12/20/16 04:00 BP 108/51 12/20/16 04:00 Pulse Ox 95 12/20/16 04:00 Intake & Output 12/19/16 12/20/16 12/20/16 18:59 06:59 18:59 Intake Total 120 100 Output Total 700 500 300 Balance -580 -500 -200 Weight 50.1 kg Intake: Oral 120 100 Output: Urine 700 500 300 Other: Voiding Method Indwelling Catheter Indwelling Catheter # Voids 0 # Bowel Movements 0 - Constitutional Constitutional Comment(s): Physical exam 81-year-old female arousable to verbal stimuli resting in bed appears in no acute distress Lungs diminished at the bases no wheezing noted Heart S1-S2 audible positive systolic murmur radiates up to the carotids monitor sinus rhythm Abdomen soft nontender Extremities no edema - Labs CBC & Chem 7: 12/18/16 18:36 12/20/16 06:15 Labs: Abnormal Lab Results - Last 24 Hours (Table) 12/19/16 12/19/16 12/19/16 Range/Units 11:59 16:31 21:14 Sodium (137-145) mmol/L Potassium (3.5-5.1) mmol/L Chloride (98-107) mmol/L Carbon Dioxide (22-30) mmol/L BUN (7-17) mg/dL Creatinine (0.52-1.04) mg/dL Glucose (74-99) mg/dL POC Glucose (mg/dL) 125 H 168 H 162 H (75-99) mg/dL Calcium (8.4-10.2) mg/dL 12/20/16 12/20/16 Range/Units 06:12 06:15 Sodium 134 L (137-145) mmol/L Potassium 5.3 H (3.5-5.1) mmol/L Chloride 92 L (98-107) mmol/L Carbon Dioxide 34 H (22-30) mmol/L BUN 46 H (7-17) mg/dL Creatinine 2.10 H (0.52-1.04) mg/dL Glucose 182 H (74-99) mg/dL POC Glucose (mg/dL) 191 H (75-99) mg/dL Calcium 12.5 H (8.4-10.2) mg/dL Assessment and Plan Plan: Impression Present on admission progressive symptomatic shortness of breath multifactorial acute exacerbation systolic congestive heart failure with an abnormal VQ scan with respiratory infection not ruled out Known history of valvular heart disease moderate to severe aortic stenosis Recently diagnosed with Hodgkin's lymphoma History of coronary artery disease prior [place] Hypertension essential Present on admission BNP elevated 14,800 Present on admission acute renal failure Type 2 diabetes non-insulin requiring hemoglobin A1c 7.9 Present on admission electrolyte abnormality hyponatremia, hyperkalemia Hyperlipidemia Elevated d-dimer with the VQ scan intermediate probability for pulmonary emboli based on pioped 2 criteria Chronic renal failure Plan Continue recommendations by pulmonology defer to Continue recommendations by cardiology service and hematology defer to Repeat labs in the morning Per cardiology's recommendations repeat the echocardiogram follow up on results Per cardiology's recommendations beta sully therapy will be initiated Further recommendations pending Restart home meds as appropriate DVT and GI prophylaxis Continue Solu-Medrol 60 IV every 6 Continue IV Zosyn as ordered The above dictated assessment and findings were discussed with dr gagan Javed and the plan of care have been dictated as directed. Arlen Dorsey nurse practitioner acting as a scribe for dr farah
--- NOTE | 2016-12-20 11:46 | PN ---
Mrs. Mckenzie is an 81-year-old female with known history of ischemic cardiomyopathy, history of moderate to severe aortic stenosis who was recently diagnosed with Hodgkin lymphoma who presented with symptoms of progressive dyspnea. She has continued to be dyspneic although slightly better. She denies any symptoms of chest pain. She denies any dizziness. She continues to feel weak. She continues to be at this time on Lasix 40 mg IV q.12 hours, Lovenox subcu, Lipitor 10 mg daily, aspirin 81 mg daily, Lisinopril 2.5 mg every 48 hours, metoprolol succinate 50 mg daily. PHYSICAL EXAMINATION: Blood pressure 108/50 with a heart in the 70s. LUNGS: With decreased breath sound bilaterally. A few crackles. HEART: Regular rate and rhythm. S1, S2, no S3, with systolic ejection murmur, 3/6, mid to late peaking. No diastolic murmur radiating to the neck. ABDOMEN: Soft, nontender. EXTREMITIES: No edema. Lab data revealed BUN, creatinine of 46 and 2.1. Potassium 5.3. Her calcium is 12.5. Her echocardiogram revealed ejection fraction of 35% to 40%, which is chronic with moderate to severe aortic stenosis and a mean gradient of 37 mmHg. CONCLUSION: 1. Symptoms of progressive dyspnea on exertion multifactorial, probably some element of congestive heart failure with possible pneumonia. Could be postobstructive because of lymphoma. 2. Hodgkin's lymphoma. 3. History of ischemic cardiomyopathy. 4. Moderate to severe aortic stenosis. 5. Status post percutaneous revascularization in 1994. 6. Chronic kidney disease. 7. Hyperlipidemia. RECOMMENDATIONS: From the cardiac standpoint, I will switch her to oral diuretics, follow her renal function and depending on her progress, further recommendation will be made.
[2016-12-20 12:07] LABS: Glucose,Whole Blood 175 mg/dL (75-99)
--- NOTE | 2016-12-20 17:09 | P.PN ---
Subjective This is an 81-year-old female patient with known history of coronary artery disease, moderate severe aortic stenosis and a congestion heart failure with an ejection fraction of 35-40% who was also recently diagnosed having Hodgkin's lymphoma. Note that the patient presented with extensive right axillary lymphadenopathy and a biopsy of the lymph node confirmed the presence of Hodgkin 's lymphoma. At that point the patient was referred to oncology and a PET scan was done that showed extensive superior mediastinal, and hilar lymphadenopathy in addition to large axillary masses/lymph nodes. There was also a left-sided pleural effusion and nodular density present in the right lower lobe measuring 1.8 cm and smaller nodularities present in the subpleural location without corresponding metabolic uptake. Some nodularity in the left lung was also seen adjacent to the pleural effusion. There was also some background emphysema noted and some nodules were also present within the portal region consistent with Hodgkin's lymphoma. The patient has not been started on treatment yet. I had a chance to interview the patient's daughter was at the bedside. She tells that her health in general has been progressively getting worse. Probably more than a month ago the patient was able to walk and move around and perform activities of daily life and her performance status has gotten progressively worse. She is losing weight. At this point she gets short of breath with ligament amount of activity and she presented to the hospital because of increased cough, chest congestion, wheezing. She denied having any chest pain. No fever chills or night sweats. She is producing clear to yellowish sputum. No cardiac arrhythmias have been noted. Note that she was also found to be in acute kidney injury in the creatinine was at 1.5. She is on oral hypoglycemic agents and she was having prolonged hypoglycemic events. She is a chronic smoker. No change in mental status. No seizure activity. Other comorbid conditions include hypertension and hyperlipidemia and diabetes mellitus. The patient is already been seen by cardiology and echocardiogram was repeated and the patient was started on IV Lasix suspecting an underlying component of CHF. Note that her admission sodium level was 128, renal function showed a creatinine of 1.5, proBNP level was at 14,800. Troponin is were mainly elevated at 0.02 respectively twice. On 12/20/2016 the patient is being seen in follow-up. She left bronchus spastic and wheezy however she continues to have significant chest congestion and shortness of breath. On examination she has marked diminished breath sounds bilaterally especially in the lung bases. She was started on examination broken dilators, steroids and empiric antibiotic coverage with IV Zosyn. Diuretics had to be cut down to oral Lasix 20 mg by mouth twice a day as the patient developed a prerenal component. Follow-up chest x-ray was ordered for tomorrow. Objective - Vital Signs Vital signs: Vital Signs Temp 97.4 F L 12/20/16 11:45 Pulse 96 12/20/16 16:32 Resp 18 12/20/16 11:45 BP 116/56 12/20/16 11:45 Pulse Ox 99 12/20/16 11:45 Intake & Output 12/19/16 12/20/16 12/20/16 18:59 06:59 18:59 Intake Total 120 100 Output Total 700 500 600 Balance -580 -500 -500 Weight 50.1 kg Intake: Oral 120 100 Output: Urine 700 500 600 Uretheral (Mandujano) 300 Other: Voiding Method Indwelling Catheter Indwelling Catheter Indwelling Catheter # Voids 0 # Bowel Movements 0 - Exam Head exam was generally normal. There was no scleral icterus or corneal arcus. Mucous membranes were moist.Neck was supple and without jugular venous distension, thyromegaly, or carotid bruits. Carotids were easily palpable bilaterally. There was no adenopathy. Lung sounds are diminished bilaterally along with that there is diffuse extremity wheezes throughout the lung longoria bilaterally and breath sounds are specifically diminished in the left lung base along with some dullness to percussion. Heart sounds are irregular, there is severe and grade 4/6 systolic ejection murmur heard throughout the precordium. Murmurs radiating to the neck.Abdominal exam revealed normal bowel sounds. The abdomen was soft, non-tender, and without masses, organomegaly, or appreciable enlargement of the abdominal aorta.Examination of the extremities revealed easily palpable radial, femoral and pedal pulses. There was no cyanosis, clubbing or edema. The patient has trace edema in lower oximetry is bilaterally. Examination of the skin shows extensive right axillary lymphadenopathy and the lymph nodes are quite large and firm and bulky. - Labs CBC & Chem 7: 12/18/16 18:36 12/20/16 06:15 Labs: Abnormal Lab Results - Last 24 Hours (Table) 12/19/16 12/20/16 12/20/16 Range/Units 21:14 06:12 06:15 Sodium 134 L (137-145) mmol/L Potassium 5.3 H (3.5-5.1) mmol/L Chloride 92 L (98-107) mmol/L Carbon Dioxide 34 H (22-30) mmol/L BUN 46 H (7-17) mg/dL Creatinine 2.10 H (0.52-1.04) mg/dL Glucose 182 H (74-99) mg/dL POC Glucose (mg/dL) 162 H 191 H (75-99) mg/dL Calcium 12.5 H (8.4-10.2) mg/dL 12/20/16 Range/Units 11:55 Sodium (137-145) mmol/L Potassium (3.5-5.1) mmol/L Chloride (98-107) mmol/L Carbon Dioxide (22-30) mmol/L BUN (7-17) mg/dL Creatinine (0.52-1.04) mg/dL Glucose (74-99) mg/dL POC Glucose (mg/dL) 175 H (75-99) mg/dL Calcium (8.4-10.2) mg/dL Assessment and Plan Plan: Assessment 1 dyspnea/hypoxemia, subacute with progressive worsening in respiratory status and genital. Chest x-ray that was done in the emergency department showed bilateral infiltrates worse on the left along with some left-sided pleural effusion and limited right-sided pleural effusion. Suspect a component of CHF in conjunction with possible pneumonia and at this point a postobstructive pneumonia needs to be considered especially the patient is bulky mediastinal lymphadenopathy involving lymph nodes along the left hilum On 12/20/2016, the patient has made minimal progress in her respiratory status. We will continue the current treatment which include a combination of bronchodilators, broad-spectrum antibiotics and systemic steroids and a follow- up chest x-ray was ordered for tomorrow. 2 Hodgkin's lymphoma with bulky axillary and mediastinal lymphadenopathy. The patient has also scattered subpleural and pulmonary nodules which have shown uptake along with a left-sided pleural effusion and this can be POTENTIALLY manifestations of Hodgkin's lymphoma. One concern is that the left hilar and infrahilar lymph nodes are causing mass effect and obstruction of the left lower lobe bronchus leading into a postobstructive pneumonia. 3 CHF with an ejection fraction of 35% 4 moderate severe aortic stenosis 5 coronary artery disease. The patient has had previous coronary intervention and stenting 6 COPD exacerbation 7 hypertension 8 chronic renal failure and based on previous creatinine monitoring the patient' s creatinine has ranged between 1.2 and 2.' 9 hyponatremia 10 chronic anemia 11 sulfonylurea-induced hypoglycemia and the patient's hypoglycemic events have been treated appropriately 12 Hyperlipidemia 13 very impaired performance and functional status secondary to above-mentioned comorbidities Plan The patient will be placed on oral Lasix knowing that she has developed a prerenal azotemia picture. I would suggest covering this patient with a broad- spectrum antibiotics and I would suggest putting her on IV Zosyn for now with the potential of an obstructive/postobstructive pneumonia and left lower lobe. The patient will be also raised on IV Solu-Medrol knowing that she has underlying COPD which Is currently exacerbating as the patient has signs of active bronchospasm wheezing. The steroids may also cause some effect on the underlying Hodgkin's lymphoma. Repeat chest x-ray with the next 24-48 hours. The patient has a poor performance and functional status and I am not sure she will be a candidate for systemic chemotherapy for Hodgkins lymphoma. recovery is slow at this point and the patient will be monitored on a day-to-day basis and a follow-up chest x-ray we'll obtain for tomorrow.
[2016-12-20 17:27] LABS: Glucose,Whole Blood 387 mg/dL (75-99)
[2016-12-20] MEDS ORDERED: IPRATROPIUM-ALBUTEROL 3 ML NEB INHALATION PRN (19:02)
[2016-12-20 20:49] LABS: Glucose,Whole Blood 415 mg/dL (75-99)
[2016-12-20] MEDS: LEVOFLOXACIN 500MG-D5W PMX 500 MG in DEXTROSE/WATER 1 100ML.BAG IVPB SCH (21:38)
[2016-12-20] MEDS: FUROSEMIDE 20 MG TAB PO SCH (21:39)
[2016-12-20] MEDS: ATORVASTATIN 10 MG TAB PO SCH (21:39)
[2016-12-20] MEDS ORDERED: INSULIN REGULAR BOLUS (FROM DRIP BAG) IV ONE (21:53)
[2016-12-20 22:21] LABS: Glucose,Whole Blood 367 mg/dL (75-99)
[2016-12-20] MEDS ORDERED: INSULIN REGULAR 100 UNIT in SODIUM CHLORIDE 0.9% 100 ML IV SCH (22:30)
[2016-12-20 23:05] LABS: Glucose,Whole Blood 332 mg/dL (75-99)
[2016-12-20 23:52] LABS: Glucose,Whole Blood 304 mg/dL (75-99)
[2016-12-21 00:15] LABS: Glucose,Whole Blood 274 mg/dL (75-99)
[2016-12-21] MEDS: PIPERACILLIN-TAZOBACTAM 3.375 GM in DEXTROSE/WATER 1 50ML.BAG IVPB SCH ×3 (00:15→21:55)
[2016-12-21] MEDS: methylPREDNISolone SOD SUCCI 125 MG/2 ML VIAL IV SCH ×2 (00:16→06:20)
[2016-12-21 00:43] LABS: Glucose,Whole Blood 207 mg/dL (75-99)
[2016-12-21 03:06] LABS: Glucose,Whole Blood 67 mg/dL (75-99)
[2016-12-21 03:40] LABS: Glucose,Whole Blood 71 mg/dL (75-99)
[2016-12-21 04:05] LABS: Glucose,Whole Blood 72 mg/dL (75-99)
[2016-12-21 05:10] LABS: Glucose,Whole Blood 105 mg/dL (75-99)
[2016-12-21 06:21] LABS: Glucose,Whole Blood 128 mg/dL (75-99)
[2016-12-21] MEDS: INSULIN LISPRO (humaLOG) 300 UNIT/3 ML VIAL SQ SCH ×6 (06:21→21:34)
[2016-12-21 06:35] LABS: Glucose,Whole Blood 120 mg/dL (75-99)
[2016-12-21 06:47] LABS: Calcium 12.7 mg/dL (8.4-10.2); Potassium 5.1 mmol/L (3.5-5.1)
[2016-12-21 07:07] LABS: Glucose,Whole Blood 121 mg/dL (75-99)
[2016-12-21 08:16] LABS: Glucose,Whole Blood 159 mg/dL (75-99)
[2016-12-21] MEDS: ASPIRIN 81 MG CHEW PO SCH (08:28)
[2016-12-21] MEDS: FUROSEMIDE 20 MG TAB PO SCH ×2 (08:28→21:55)
[2016-12-21] MEDS: LORATADINE 10 MG TAB PO SCH (08:29)
[2016-12-21] MEDS: ENOXAPARIN 60 MG/0.6 ML SYRINGE SQ SCH (08:29)
[2016-12-21] MEDS: METOPROLOL SUCCINATE (ER) 50 MG TAB.ER.24H PO SCH (08:29)
--- NOTE | 2016-12-21 08:33 | XR ---
EXAMINATION TYPE: XR chest 1V DATE OF EXAM: 12/21/2016 7:19 AM COMPARISON: 12/18/2016 INDICATION: Dyspnea TECHNIQUE: Single frontal view of the chest is obtained. FINDINGS: The heart size is mildly prominent. The pulmonary vasculature is normal. There is a moderate left pleural effusion. Mild increased lung markings at the left base. This has so me improvement from prior study. Right lung mild infiltrates have improved. IMPRESSION: 1. Moderate left pleural effusion. 2. Improving bilateral infiltrates. Continued follow-up is recommended.
[2016-12-21] MEDS: IPRATROPIUM-ALBUTEROL 3 ML NEB INHALATION SCH ×4 (09:05→20:26)
[2016-12-21] MEDS ORDERED: Magnesium Replacement Protocol 1 EACH MISC MISCELLANE PRN (09:58)
[2016-12-21] MEDS ORDERED: Potassium Replacement Protocol 1 EACH MISC MISCELLANE PRN (09:58)
[2016-12-21 11:16] VITALS: BMI 27.0
--- NOTE | 2016-12-21 11:33 | P.PN ---
Subjective Patient is doing fairly well today. She denies any significant shortness of breath while sitting at the edge of the bed. Objective - Vital Signs Vital signs: Vital Signs Temp 97.1 F L 12/21/16 08:34 Pulse 92 12/21/16 09:21 Resp 18 12/21/16 08:34 BP 120/63 12/21/16 08:34 Pulse Ox 92 L 12/21/16 09:07 Intake & Output 12/20/16 12/21/16 12/21/16 18:59 06:59 18:59 Intake Total 300 635.316 360 Output Total 600 400 Balance -300 235.316 360 Weight 56.6 kg 56.6 kg Intake: IV 200 470 0.9 NS 200 320 Levofloxacin 500Mg-D5w 100 Pmx 500 mg In Dextrose/ Water 1 100ml.bag @ 100 mls/hr IVPB Q24H ERI Rx#: [id number] Piperacillin-Tazobactam 3 50 .375 gm In Dextrose/Water 1 50ml.bag @ 12.5 mls/hr IVPB Q8HR ERI Rx#: [id number] Intake, IV Titration 45.316 0 Amount Insulin Regular 100 unit 45.316 0 In Sodium Chloride 0.9% 100 ml @ Titrate IV .Q0M ERI Rx#:[id number] Oral 100 120 360 Output: Urine 600 400 Uretheral (Mandujano) 300 Other: Voiding Method Indwelling Catheter Indwelling Catheter Indwelling Catheter - Exam General: The patient is awake and alert, in no distress Eye: there is normal conjunctiva bilaterally. Neck: The neck is supple, there is no JVD. Cardiovascular: Normal S1-S2, no S3-S4, no murmurs. Respiratory: Lungs clear to auscultation bilaterally Gastrointestinal: Abdomen is soft, nontender Musculoskeletal: There is no pedal edema. Neurological:. Speech is normal. Skin: Skin is warm and dry - Labs CBC & Chem 7: 12/18/16 18:36 12/21/16 05:44 Labs: Abnormal Lab Results - Last 24 Hours (Table) 12/20/16 12/20/16 12/20/16 Range/Units 11:55 17:25 20:48 Sodium (137-145) mmol/L Chloride (98-107) mmol/L Carbon Dioxide (22-30) mmol/L BUN (7-17) mg/dL Creatinine (0.52-1.04) mg/dL Glucose (74-99) mg/dL POC Glucose (mg/dL) 175 H 387 H 415 H (75-99) mg/dL Calcium (8.4-10.2) mg/dL 12/20/16 12/20/16 12/20/16 Range/Units 22:01 23:04 23:32 Sodium (137-145) mmol/L Chloride (98-107) mmol/L Carbon Dioxide (22-30) mmol/L BUN (7-17) mg/dL Creatinine (0.52-1.04) mg/dL Glucose (74-99) mg/dL POC Glucose (mg/dL) 367 H 332 H 304 H (75-99) mg/dL Calcium (8.4-10.2) mg/dL 12/21/16 12/21/16 12/21/16 Range/Units 00:02 00:32 02:43 Sodium (137-145) mmol/L Chloride (98-107) mmol/L Carbon Dioxide (22-30) mmol/L BUN (7-17) mg/dL Creatinine (0.52-1.04) mg/dL Glucose (74-99) mg/dL POC Glucose (mg/dL) 274 H 207 H 67 L (75-99) mg/dL Calcium (8.4-10.2) mg/dL 12/21/16 12/21/16 12/21/16 Range/Units 03:37 03:59 05:07 Sodium (137-145) mmol/L Chloride (98-107) mmol/L Carbon Dioxide (22-30) mmol/L BUN (7-17) mg/dL Creatinine (0.52-1.04) mg/dL Glucose (74-99) mg/dL POC Glucose (mg/dL) 71 L 72 L 105 H (75-99) mg/dL Calcium (8.4-10.2) mg/dL 12/21/16 12/21/16 12/21/16 Range/Units 05:44 06:07 06:19 Sodium 132 L (137-145) mmol/L Chloride 93 L (98-107) mmol/L Carbon Dioxide 31 H (22-30) mmol/L BUN 59 H (7-17) mg/dL Creatinine 2.20 H (0.52-1.04) mg/dL Glucose 102 H (74-99) mg/dL POC Glucose (mg/dL) 120 H 128 H (75-99) mg/dL Calcium 12.7 H (8.4-10.2) mg/dL 12/21/16 12/21/16 Range/Units 07:03 08:12 Sodium (137-145) mmol/L Chloride (98-107) mmol/L Carbon Dioxide (22-30) mmol/L BUN (7-17) mg/dL Creatinine (0.52-1.04) mg/dL Glucose (74-99) mg/dL POC Glucose (mg/dL) 121 H 159 H (75-99) mg/dL Calcium (8.4-10.2) mg/dL Assessment and Plan Plan: Impression: - Present on admission progressive symptomatic shortness of breath multifactorial acute exacerbation systolic congestive heart failure with underlying pneumonia - Suspected postobstructive pneumonia on broad-spectrum antibiotic - Recently diagnosed Hodgkin's lymphoma with bulky axillary and the lara lymphadenopathy: Seen and evaluated by heme/onc. Awaiting further recommendation in terms of treatment options - Moderate to severe aortic stenosis - History of coronary artery disease prior DC - Hypertension essential - Systolic heart failure exacerbation: Present on admission, EF of 35-40%. seen and evaluated by cardiology. Diuretics switched to oral. - Present on admission acute renal failure - Stage IIIB chronic kidney disease - Type 2 diabetes non-insulin requiring hemoglobin A1c 7.9 - Present on admission electrolyte abnormality hyponatremia, hyperkalemia - Hyperlipidemia Plan - Continue current regimen with antibiotic - Decrease IV Solu-Medrol dose to 40 mg twice daily - Wean off O2 as tolerated for O2 sat above 90% - Appreciate consultants recommendations - Repeat labs in the morning
[2016-12-21 11:53] LABS: Glucose,Whole Blood 159 mg/dL (75-99)
--- NOTE | 2016-12-21 12:37 | P.PN ---
Subjective Principal diagnosis: Dyspnea This is a pleasant 81-year-old female with known history of ischemic cardiomyopathy, moderate to severe aortic stenosis, who has a recent diagnosis of Hodgkin's lymphoma, she presented to the hospital with symptoms of progressive dyspnea. Patient was seen and examined this morning, just complains of feeling weak overall, mildly short of breath. She is scheduled to undergo an ultrasound of the chest with aspiration of fluid to be sent for cytology, as ordered by pulmonary. Blood pressure today 120/60 with a heart rate in the 90 she's 92% on room air. BUN 59 today, creatinine 2.2, potassium 5.1. Objective - Vital Signs Vital signs: Vital Signs Temp 97.1 F L 12/21/16 08:34 Pulse 92 12/21/16 09:21 Resp 18 12/21/16 08:34 BP 120/63 12/21/16 08:34 Pulse Ox 92 L 12/21/16 09:07 Intake & Output 12/20/16 12/21/16 12/21/16 18:59 06:59 18:59 Intake Total 300 635.316 360 Output Total 600 400 Balance -300 235.316 360 Weight 56.6 kg 56.6 kg Intake: IV 200 470 0.9 NS 200 320 Levofloxacin 500Mg-D5w 100 Pmx 500 mg In Dextrose/ Water 1 100ml.bag @ 100 mls/hr IVPB Q24H ERI Rx#: [id number] Piperacillin-Tazobactam 3 50 .375 gm In Dextrose/Water 1 50ml.bag @ 12.5 mls/hr IVPB Q8HR ERI Rx#: [id number] Intake, IV Titration 45.316 0 Amount Insulin Regular 100 unit 45.316 0 In Sodium Chloride 0.9% 100 ml @ Titrate IV .Q0M ERI Rx#:[id number] Oral 100 120 360 Output: Urine 600 400 Uretheral (Mandujano) 300 Other: Voiding Method Indwelling Catheter Indwelling Catheter Indwelling Catheter - Exam PHYSICAL EXAMINATION: HEENT: Head is atraumatic, normocephalic. Pupils equal, round. Neck is supple. There is no elevated jugular venous pressure. HEART EXAMINATION: S1 and S2 with systolic murmur is heard. CHEST EXAMINATION: Lungs are clear with diminished air entry to bilateral bases left greater than the right. ABDOMEN: Soft, nontender. Bowel sounds are heard. No organomegaly noted. EXTREMITIES: 2+ peripheral pulses with trace evidence of peripheral edema and no calf tenderness noted. NEUROLOGIC patient is awake, alert and oriented -3. . - Labs CBC & Chem 7: 12/18/16 18:36 12/21/16 05:44 Labs: Abnormal Lab Results - Last 24 Hours (Table) 12/20/16 12/20/16 12/20/16 Range/Units 17:25 20:48 22:01 Sodium (137-145) mmol/L Chloride (98-107) mmol/L Carbon Dioxide (22-30) mmol/L BUN (7-17) mg/dL Creatinine (0.52-1.04) mg/dL Glucose (74-99) mg/dL POC Glucose (mg/dL) 387 H 415 H 367 H (75-99) mg/dL Calcium (8.4-10.2) mg/dL 12/20/16 12/20/16 12/21/16 Range/Units 23:04 23:32 00:02 Sodium (137-145) mmol/L Chloride (98-107) mmol/L Carbon Dioxide (22-30) mmol/L BUN (7-17) mg/dL Creatinine (0.52-1.04) mg/dL Glucose (74-99) mg/dL POC Glucose (mg/dL) 332 H 304 H 274 H (75-99) mg/dL Calcium (8.4-10.2) mg/dL 12/21/16 12/21/16 12/21/16 Range/Units 00:32 02:43 03:37 Sodium (137-145) mmol/L Chloride (98-107) mmol/L Carbon Dioxide (22-30) mmol/L BUN (7-17) mg/dL Creatinine (0.52-1.04) mg/dL Glucose (74-99) mg/dL POC Glucose (mg/dL) 207 H 67 L 71 L (75-99) mg/dL Calcium (8.4-10.2) mg/dL 12/21/16 12/21/16 12/21/16 Range/Units 03:59 05:07 05:44 Sodium 132 L (137-145) mmol/L Chloride 93 L (98-107) mmol/L Carbon Dioxide 31 H (22-30) mmol/L BUN 59 H (7-17) mg/dL Creatinine 2.20 H (0.52-1.04) mg/dL Glucose 102 H (74-99) mg/dL POC Glucose (mg/dL) 72 L 105 H (75-99) mg/dL Calcium 12.7 H (8.4-10.2) mg/dL 12/21/16 12/21/16 12/21/16 Range/Units 06:07 06:19 07:03 Sodium (137-145) mmol/L Chloride (98-107) mmol/L Carbon Dioxide (22-30) mmol/L BUN (7-17) mg/dL Creatinine (0.52-1.04) mg/dL Glucose (74-99) mg/dL POC Glucose (mg/dL) 120 H 128 H 121 H (75-99) mg/dL Calcium (8.4-10.2) mg/dL 12/21/16 12/21/16 Range/Units 08:12 11:46 Sodium (137-145) mmol/L Chloride (98-107) mmol/L Carbon Dioxide (22-30) mmol/L BUN (7-17) mg/dL Creatinine (0.52-1.04) mg/dL Glucose (74-99) mg/dL POC Glucose (mg/dL) 159 H 159 H (75-99) mg/dL Calcium (8.4-10.2) mg/dL Assessment and Plan (1) Systolic CHF, acute on chronic Status: Acute (2) Ischemic cardiomyopathy Status: Acute (3) CAD (coronary artery disease) Status: Acute (4) Diabetes Status: Acute (5) HTN (hypertension) Status: Acute (6) Hyperlipemia Status: Acute (7) Anemia Status: Acute (8) Hodgkins lymphoma Status: Acute (9) Hypertension Status: Acute (10) Pleural effusion Status: Acute Plan: From cardiology's perspective, we will recommend to continue the patient on her current medications including the by mouth Lasix. Overall prognosis is guarded. We will continue to follow. DNP note has been reviewed, I agree with a documented findings and plan of care. Patient was seen and examined.
--- NOTE | 2016-12-21 12:50 | P.PN ---
Subjective Principal diagnosis: Shortness of breath secondary to congestive heart failure, systolic dysfunction , and left pleural effusion. This is an 81-year-old female patient with known history of coronary artery disease, moderate severe aortic stenosis and a congestion heart failure with an ejection fraction of 35-40% who was also recently diagnosed having Hodgkin's lymphoma. Note that the patient presented with extensive right axillary lymphadenopathy and a biopsy of the lymph node confirmed the presence of Hodgkin 's lymphoma. At that point the patient was referred to oncology and a PET scan was done that showed extensive superior mediastinal, and hilar lymphadenopathy in addition to large axillary masses/lymph nodes. There was also a left-sided pleural effusion and nodular density present in the right lower lobe measuring 1.8 cm and smaller nodularities present in the subpleural location without corresponding metabolic uptake. Some nodularity in the left lung was also seen adjacent to the pleural effusion. There was also some background emphysema noted and some nodules were also present within the portal region consistent with Hodgkin's lymphoma. The patient has not been started on treatment yet. I had a chance to interview the patient's daughter was at the bedside. She tells that her health in general has been progressively getting worse. Probably more than a month ago the patient was able to walk and move around and perform activities of daily life and her performance status has gotten progressively worse. She is losing weight. At this point she gets short of breath with ligament amount of activity and she presented to the hospital because of increased cough, chest congestion, wheezing. She denied having any chest pain. No fever chills or night sweats. She is producing clear to yellowish sputum. No cardiac arrhythmias have been noted. Note that she was also found to be in acute kidney injury in the creatinine was at 1.5. She is on oral hypoglycemic agents and she was having prolonged hypoglycemic events. She is a chronic smoker. No change in mental status. No seizure activity. Other comorbid conditions include hypertension and hyperlipidemia and diabetes mellitus. The patient is already been seen by cardiology and echocardiogram was repeated and the patient was started on IV Lasix suspecting an underlying component of CHF. Note that her admission sodium level was 128, renal function showed a creatinine of 1.5, proBNP level was at 14,800. Troponin is were mainly elevated at 0.02 respectively twice. On 12/20/2016 the patient is being seen in follow-up. She left bronchus spastic and wheezy however she continues to have significant chest congestion and shortness of breath. On examination she has marked diminished breath sounds bilaterally especially in the lung bases. She was started on examination broken dilators, steroids and empiric antibiotic coverage with IV Zosyn. Diuretics had to be cut down to oral Lasix 20 mg by mouth twice a day as the patient developed a prerenal component. Follow-up chest x-ray was ordered for tomorrow. Patient was seen today on 12/21/2016, continues to have some shortness of breath , continues to have diminished breath sounds at the bases, chest x-ray continues to show significant left-sided pleural effusion. Patient is improving but very slowly, hence I recommended an ultrasound of the chest, and I 'm considering left sided thoracentesis if the pleural effusion is large enough to be drained. That will be diagnostic and therapeutic at the same time. Labs were reviewed, renal profile seems to be getting worse with diuretics, BUN is 59 and creatinine is 2.20. Meds were reviewed, patient remains on bronchodilators, she remains on antibiotics, and diuretics as well as steroids. Objective - Vital Signs Vital signs: Vital Signs Temp 97.1 F L 12/21/16 08:34 Pulse 92 12/21/16 09:21 Resp 18 12/21/16 08:34 BP 120/63 12/21/16 08:34 Pulse Ox 92 L 12/21/16 09:07 Intake & Output 12/20/16 12/21/16 12/21/16 18:59 06:59 18:59 Intake Total 300 635.316 360 Output Total 600 400 Balance -300 235.316 360 Weight 56.6 kg 56.6 kg Intake: IV 200 470 0.9 NS 200 320 Levofloxacin 500Mg-D5w 100 Pmx 500 mg In Dextrose/ Water 1 100ml.bag @ 100 mls/hr IVPB Q24H ERI Rx#: [id number] Piperacillin-Tazobactam 3 50 .375 gm In Dextrose/Water 1 50ml.bag @ 12.5 mls/hr IVPB Q8HR ERI Rx#: [id number] Intake, IV Titration 45.316 0 Amount Insulin Regular 100 unit 45.316 0 In Sodium Chloride 0.9% 100 ml @ Titrate IV .Q0M ERI Rx#:[id number] Oral 100 120 360 Output: Urine 600 400 Uretheral (Mandujano) 300 Other: Voiding Method Indwelling Catheter Indwelling Catheter Indwelling Catheter - Exam Physical Exam: Revealed an 81-year-old female in no distress. HEENT:[Neck is supple.] [No neck masses.] [No thyromegaly.] [No JVD.] Chest: [Diminished breath sounds and dullness at the left base.] Cardiac Exam: [Irregular rhythm, 3/6 systolic murmur throughout the precordium.] Abdomen: [Soft, nontender, no megaly, no rebound, no guarding, normal bowel sounds.] Extremities: [No clubbing, trace of bipedal edema, no cyanosis.] Neurological Exam: [No focal neurologic deficit.] - Labs CBC & Chem 7: 12/18/16 18:36 12/21/16 05:44 Labs: Abnormal Lab Results - Last 24 Hours (Table) 12/20/16 12/20/16 12/20/16 Range/Units 17:25 20:48 22:01 Sodium (137-145) mmol/L Chloride (98-107) mmol/L Carbon Dioxide (22-30) mmol/L BUN (7-17) mg/dL Creatinine (0.52-1.04) mg/dL Glucose (74-99) mg/dL POC Glucose (mg/dL) 387 H 415 H 367 H (75-99) mg/dL Calcium (8.4-10.2) mg/dL 12/20/16 12/20/16 12/21/16 Range/Units 23:04 23:32 00:02 Sodium (137-145) mmol/L Chloride (98-107) mmol/L Carbon Dioxide (22-30) mmol/L BUN (7-17) mg/dL Creatinine (0.52-1.04) mg/dL Glucose (74-99) mg/dL POC Glucose (mg/dL) 332 H 304 H 274 H (75-99) mg/dL Calcium (8.4-10.2) mg/dL 12/21/16 12/21/16 12/21/16 Range/Units 00:32 02:43 03:37 Sodium (137-145) mmol/L Chloride (98-107) mmol/L Carbon Dioxide (22-30) mmol/L BUN (7-17) mg/dL Creatinine (0.52-1.04) mg/dL Glucose (74-99) mg/dL POC Glucose (mg/dL) 207 H 67 L 71 L (75-99) mg/dL Calcium (8.4-10.2) mg/dL 12/21/16 12/21/16 12/21/16 Range/Units 03:59 05:07 05:44 Sodium 132 L (137-145) mmol/L Chloride 93 L (98-107) mmol/L Carbon Dioxide 31 H (22-30) mmol/L BUN 59 H (7-17) mg/dL Creatinine 2.20 H (0.52-1.04) mg/dL Glucose 102 H (74-99) mg/dL POC Glucose (mg/dL) 72 L 105 H (75-99) mg/dL Calcium 12.7 H (8.4-10.2) mg/dL 12/21/16 12/21/16 12/21/16 Range/Units 06:07 06:19 07:03 Sodium (137-145) mmol/L Chloride (98-107) mmol/L Carbon Dioxide (22-30) mmol/L BUN (7-17) mg/dL Creatinine (0.52-1.04) mg/dL Glucose (74-99) mg/dL POC Glucose (mg/dL) 120 H 128 H 121 H (75-99) mg/dL Calcium (8.4-10.2) mg/dL 12/21/16 12/21/16 Range/Units 08:12 11:46 Sodium (137-145) mmol/L Chloride (98-107) mmol/L Carbon Dioxide (22-30) mmol/L BUN (7-17) mg/dL Creatinine (0.52-1.04) mg/dL Glucose (74-99) mg/dL POC Glucose (mg/dL) 159 H 159 H (75-99) mg/dL Calcium (8.4-10.2) mg/dL Assessment and Plan Plan: 1 dyspnea/hypoxemia, subacute with progressive worsening in respiratory status and genital. Chest x-ray that was done in the emergency department showed bilateral infiltrates worse on the left along with some left-sided pleural effusion and limited right-sided pleural effusion. Suspect a component of CHF in conjunction with possible pneumonia and at this point a postobstructive pneumonia needs to be considered especially the patient is bulky mediastinal lymphadenopathy involving lymph nodes along the left hilum On 12/20/2016, the patient has made minimal progress in her respiratory status. We will continue the current treatment which include a combination of bronchodilators, broad-spectrum antibiotics and systemic steroids and a follow- up chest x-ray was ordered for tomorrow. On 12/21/2015, patient continues to have some symptoms with minimal improvement, hence I recommended ultrasound of the chest, I may consider ultrasound guided thoracentesis. The purpose of that thoracentesis would be diagnostic and therapeutic at the same time. In the meantime we'll continue antibiotics. And diuretics. 2 Hodgkin's lymphoma with bulky axillary and mediastinal lymphadenopathy. The patient has also scattered subpleural and pulmonary nodules which have shown uptake along with a left-sided pleural effusion and this can be POTENTIALLY manifestations of Hodgkin's lymphoma. One concern is that the left hilar and infrahilar lymph nodes are causing mass effect and obstruction of the left lower lobe bronchus leading into a postobstructive pneumonia. 3 CHF with an ejection fraction of 35% 4 moderate severe aortic stenosis 5 coronary artery disease. The patient has had previous coronary intervention and stenting 6 COPD exacerbation 7 hypertension 8 chronic renal failure and based on previous creatinine monitoring the patient' s creatinine has ranged between 1.2 and 2.' 9 hyponatremia 10 chronic anemia 11 sulfonylurea-induced hypoglycemia and the patient's hypoglycemic events have been treated appropriately 12 Hyperlipidemia 13 very impaired performance and functional status secondary to above-mentioned comorbidities Recommendation: Continue same treatment plan, ultrasound of the chest was ordered, if the pleural effusion is more than 5 cm pocket, then I may consider thoracentesis for diagnostic and therapeutic purposes. In the meantime continue antibiotics, diuretics, and bronchodilators. Discussed her condition with the patient and with her daughter at bedside. Time with Patient: Less than 30
--- NOTE | 2016-12-21 13:20 | US ---
EXAMINATION TYPE: US chest DATE OF EXAM: 12/21/2016 12:04 PM COMPARISON: NONE CLINICAL HISTORY: left pleural effusion. EXAM MEASUREMENTS: Left Pleural Effusion fluid pocket: 8.8 cm Left skin to fluid thickness: 1.8 cm Left side marked for possible thoracentesis outside the dept. Pulmonologists are able to review the images in the patient?s EMR. TECHNOLOGIST IMPRESSION: Left pleural effusion with markings done on the left IMPRESSIONS: 1. Left pleural effusion
--- NOTE | 2016-12-21 13:43 | CDI ---
Kahlil Petal [address] [place] [address] Documentation Clarification Form Date: 12/21/2016 12:35:00 PM From: Gurpreet Hurley RN, BSN, CDI Admit Date: 12/18/2016 7:44:00 PM Patient Name: Denny Mckenzie Visit Number: [id number] Dr. Obrien: There is conflicting documentation in the medical record: "Acute respiratory failure" is documented in the ED report. "POA progressive symptomatic shortness of breath" is documented in the ED report. "Progressive dyspnea w/cough" is documented in the cardiology consult. "Dyspnea/hypoxemia-subacute with progressive worsening in respiratory status" is documented in the pulmonary consult. History/Risk Factors: 81 yo female with a history of Hodkin's lymphoma (recent diagnosis), CHF, HTN, CRF and ischemic cardiomyopathy presents with c/o MARIA GUADALUPE, weight gain and b/l LE edema. She is being treated for acute exacerbation of CHF as well as post-obstructive PNA. Tobacco use: former smoker Home oxygen: none Clinical Indicators: Vital signs/Pulse oximetry: 121/58, 85, 18-34, 97.5, 85% on RA Lung/Breathing assessment: Per H&P: posterior diminished at the bases, upper airways bronchial breath sounds. Per pulmonary consult: "lung sounds are diminished bilaterally along with diffuse wheezes throughout the lung longoria bilaterally and breath sounds are diminished in the left lung base alond with some dullness to percussion" Treatment: Lasix 60mg IVP x1, Lasix 40mg IVP q12 then PO, Levaquin, Zosyn, Lovenox, Solumedrol Breathing tx: adriane Pulse ox: 91-97% on 4L NC, current Spo2: 90% on 3L NC, RR: 18 O2: 2-4L NC In your professional opinion, can you please clarify if these findings signify one of the following conditions? Acuity: o Acute o Chronic o Acute on Chronic Respiratory Status: o Respiratory failure o Respiratory failure with hypercapnia o Respiratory failure with hypoxia o Acute Respiratory Distress o Other Diagnosis, please specify o Unable to determine Please document in your progress notes and discharge summary in order to capture severity of illness and risk of mortality. Include clinical findings that support your diagnosis. FYI: Press F11 to launch patient chart. Acute hypoxic respiratory failure Place X here if this finding has no clinical significance, is not applicable or if you are not able to provide any additional documentation. MTDD
[2016-12-21 16:58] LABS: Glucose,Whole Blood 175 mg/dL (75-99)
--- NOTE | 2016-12-21 20:33 | PN ---
DATE OF SERVICE: 12/21/2016 I called the patient's daughter and we had a phone conference with the daughter, the patient and other family members in the room. I did explain to them the result of her PET scan unfortunately revealing extensive disease. I also called Dr. Garcia earlier today. Her ejection fraction has been between 40% and 45% since she had her heart attack in the past. Her performance status has been rapidly declining. Unfortunately, her overall prognosis is very poor, and based on her functional status and her heart function, she is not a candidate for anthracycline-based systemic regimen. We discussed palliative radiation therapy which could alleviate her significant dyspnea; however, it is not the ideal treatment for her extensive Hodgkin lymphoma; but at least it could give her some palliation. At this time she is not a candidate for systemic therapy. If her respiratory status and overall performance improve, we may consider a combination of carboplatin, Gemzar and dexamethasone as an option; otherwise, alternatively comfort care measures would be very appropriate. The patient and her family are fully aware of the overall poor prognosis and limited treatment options. I did answer all of their questions over the phone to their satisfaction.
[2016-12-21 20:41] LABS: Glucose,Whole Blood 50 mg/dL (75-99)
[2016-12-21 21:03] LABS: Glucose,Whole Blood 44 mg/dL (75-99)
[2016-12-21] MEDS ORDERED: DEXTROSE 50%-WATER 50 ML SYRINGE IVP STA (21:06)
[2016-12-21 21:33] LABS: Glucose,Whole Blood 177 mg/dL (75-99)
[2016-12-21] MEDS: INSULIN GLARGINE 100 UNIT/ML 10 ML VIAL SQ SCH (21:34)
[2016-12-21] MEDS: ATORVASTATIN 10 MG TAB PO SCH (21:56)
[2016-12-21] MEDS: methylPREDNISolone SOD SUCCI 40 MG/ML 1 ML VIAL IV SCH (21:57)
[2016-12-22 02:20] LABS: Glucose,Whole Blood 113 mg/dL (75-99)
[2016-12-22 06:20] LABS: Glucose,Whole Blood 135 mg/dL (75-99)
[2016-12-22 06:52] LABS: Magnesium 2.2 mg/dL (1.6-2.3); Phosphorous 6.5 mg/dL (2.5-4.5); Potassium 5.5 mmol/L (3.5-5.1); Total Bilirubin 0.4 mg/dL (0.2-1.3); Total Protein 6.7 g/dL (6.3-8.2)
[2016-12-22 06:55] LABS: Basophils % (A) 0 %; CH 31.6; CHCM 30.9; Eosinophils % (A) 0 %; HCT 33.1 % (34.0-46.0); HDW 2.91; HGB 9.9 gm/dL (11.4-16.0); Hypochromasia Moderate; Luc # (Auto) 0.06; Luc % (Auto) 1; Lymphocytes # (A) 0.1 k/uL (1.0-4.8); Lymphocytes % (A) 1 %; MCH 30.9 pg (25.0-35.0); MCHC 29.9 g/dL (31.0-37.0); Macrocytosis Moderate; Mean Platelet Volume 7.3; Monocytes # (A) 0.3 k/uL (0-1.0); Monocytes % (A) 3 %; Neutrophils # (A) 9.8 k/uL (1.3-7.7); Neutrophils % (A) 95 %; RBC 3.21 m/uL (3.80-5.40); RDW 15.8 % (11.5-15.5); WBC 10.3 k/uL (3.8-10.6); WBC (Perox) 11.08
[2016-12-22 06:56] LABS: Calcium 13.3 mg/dL (8.4-10.2)
[2016-12-22 07:03] LABS: MCV 103.1 fL (80.0-100.0)
[2016-12-22] MEDS: INSULIN LISPRO (humaLOG) 300 UNIT/3 ML VIAL SQ SCH ×7 (08:05→22:04)
[2016-12-22] MEDS: ENOXAPARIN 60 MG/0.6 ML SYRINGE SQ SCH (08:06)
[2016-12-22] MEDS: PIPERACILLIN-TAZOBACTAM 3.375 GM in DEXTROSE/WATER 1 50ML.BAG IVPB SCH ×2 (08:06→22:12)
[2016-12-22] MEDS: LORATADINE 10 MG TAB PO SCH (08:07)
[2016-12-22] MEDS: methylPREDNISolone SOD SUCCI 40 MG/ML 1 ML VIAL IV SCH ×2 (08:07→22:04)
[2016-12-22] MEDS: ASPIRIN 81 MG CHEW PO SCH (08:07)
[2016-12-22] MEDS: FUROSEMIDE 20 MG TAB PO SCH (08:07)
[2016-12-22] MEDS: METOPROLOL SUCCINATE (ER) 50 MG TAB.ER.24H PO SCH (08:08)
[2016-12-22] MEDS: IPRATROPIUM-ALBUTEROL 3 ML NEB INHALATION SCH ×4 (09:23→18:55)
[2016-12-22] MEDS ORDERED: SODIUM POLYSTYRENE SULFONATE 15 GM/60 ML BOTTLE PO STA (10:43)
[2016-12-22] MEDS ORDERED: LIDOCAINE 2% INJ 20 MG/ML (20 ML MDV) ONE (10:46)
--- NOTE | 2016-12-22 10:47 | P.PN ---
Subjective No issues overnight Objective - Vital Signs Vital signs: Vital Signs Temp 97.1 F L 12/22/16 08:00 Pulse 88 12/22/16 09:33 Resp 20 12/22/16 08:00 BP 80/49 12/22/16 08:00 Pulse Ox 95 12/22/16 09:23 Intake & Output 12/21/16 12/22/16 12/22/16 18:59 06:59 18:59 Intake Total 670 210 240 Output Total 400 250 Balance 270 -40 240 Weight 56.6 kg 56.9 kg Intake: IV 210 210 0.9 NS 160 160 Piperacillin-Tazobactam 3 50 50 .375 gm In Dextrose/Water 1 50ml.bag @ 12.5 mls/hr IVPB Q8HR ERI Rx#: [id number] Intake, IV Titration 0 Amount Insulin Regular 100 unit 0 In Sodium Chloride 0.9% 100 ml @ Titrate IV .Q0M ERI Rx#:[id number] Oral 460 240 Output: Urine 400 250 Other: Voiding Method Indwelling Catheter Indwelling Catheter - Exam General: The patient is awake and alert, in no distress Eye: there is normal conjunctiva bilaterally. Neck: The neck is supple, there is no JVD. Cardiovascular: Normal S1-S2, no S3-S4, no murmurs. Respiratory: Lungs clear to auscultation bilaterally Gastrointestinal: Abdomen is soft, nontender Musculoskeletal: There is no pedal edema. Neurological:. Speech is normal. Skin: Skin is warm and dry - Labs CBC & Chem 7: 12/22/16 05:41 12/22/16 05:41 Labs: Abnormal Lab Results - Last 24 Hours (Table) 12/21/16 12/21/16 12/21/16 Range/Units 11:46 16:54 20:39 RBC (3.80-5.40) m/uL Hgb (11.4-16.0) gm/dL Hct (34.0-46.0) % MCV (80.0-100.0) fL MCHC (31.0-37.0) g/dL RDW (11.5-15.5) % Neutrophils # (1.3-7.7) k/uL Lymphocytes # (1.0-4.8) k/uL Sodium (137-145) mmol/L Potassium (3.5-5.1) mmol/L Chloride (98-107) mmol/L Carbon Dioxide (22-30) mmol/L BUN (7-17) mg/dL Creatinine (0.52-1.04) mg/dL Glucose (74-99) mg/dL POC Glucose (mg/dL) 159 H 175 H 50 L (75-99) mg/dL Calcium (8.4-10.2) mg/dL Phosphorus (2.5-4.5) mg/dL Albumin (3.5-5.0) g/dL 12/21/16 12/21/16 12/22/16 Range/Units 21:00 21:30 02:17 RBC (3.80-5.40) m/uL Hgb (11.4-16.0) gm/dL Hct (34.0-46.0) % MCV (80.0-100.0) fL MCHC (31.0-37.0) g/dL RDW (11.5-15.5) % Neutrophils # (1.3-7.7) k/uL Lymphocytes # (1.0-4.8) k/uL Sodium (137-145) mmol/L Potassium (3.5-5.1) mmol/L Chloride (98-107) mmol/L Carbon Dioxide (22-30) mmol/L BUN (7-17) mg/dL Creatinine (0.52-1.04) mg/dL Glucose (74-99) mg/dL POC Glucose (mg/dL) 44 L 177 H 113 H (75-99) mg/dL Calcium (8.4-10.2) mg/dL Phosphorus (2.5-4.5) mg/dL Albumin (3.5-5.0) g/dL 12/22/16 12/22/16 12/22/16 Range/Units 05:41 05:41 06:18 RBC 3.21 L (3.80-5.40) m/uL Hgb 9.9 L (11.4-16.0) gm/dL Hct 33.1 L (34.0-46.0) % MCV 103.1 H D (80.0-100.0) fL MCHC 29.9 L (31.0-37.0) g/dL RDW 15.8 H (11.5-15.5) % Neutrophils # 9.8 H (1.3-7.7) k/uL Lymphocytes # 0.1 L (1.0-4.8) k/uL Sodium 135 L (137-145) mmol/L Potassium 5.5 H (3.5-5.1) mmol/L Chloride 91 L (98-107) mmol/L Carbon Dioxide 33 H (22-30) mmol/L BUN 70 H (7-17) mg/dL Creatinine 2.40 H (0.52-1.04) mg/dL Glucose 124 H (74-99) mg/dL POC Glucose (mg/dL) 135 H (75-99) mg/dL Calcium 13.3 H* (8.4-10.2) mg/dL Phosphorus 6.5 H (2.5-4.5) mg/dL Albumin 2.9 L (3.5-5.0) g/dL Assessment and Plan Plan: Impression: - Present on admission progressive symptomatic shortness of breath multifactorial acute exacerbation systolic congestive heart failure with underlying pneumonia and pleural effusion - Suspected postobstructive pneumonia on broad-spectrum antibiotic - Recently diagnosed Hodgkin's lymphoma with bulky axillary and the lara lymphadenopathy: Seen and evaluated by heme/onc. Not a candidate for systemic chemotherapy given overall Debility - Moderate to severe aortic stenosis - History of coronary artery disease prior CT - Hypertension essential - Systolic heart failure exacerbation: Present on admission, EF of 35-40%. seen and evaluated by cardiology. - Present on admission acute renal failure - Stage IIIB chronic kidney disease - Type 2 diabetes non-insulin requiring hemoglobin A1c 7.9 - Present on admission electrolyte abnormality hyponatremia, hyperkalemia - Hyperlipidemia Plan - Continue current regimen with antibiotic - IV Solu-Medrol dose to 40 mg twice daily - Thoracentesis plan for today by pulmonology - discontinue Lasix and start gentle IV fluid hydration over the next 24 hours given evidence of dehydration, worsening kidney failure, and hypercalcemia - Wean off O2 as tolerated for O2 sat above 90% - Appreciate consultants recommendations - Repeat labs in the morning
[2016-12-22 11:28] LABS: Glucose,Whole Blood 137 mg/dL (75-99)
--- NOTE | 2016-12-22 11:47 | P.CONS ---
History of Present Illness - Reason for Consult Consult date: 12/22/16 Lymphoma Requesting physician: Augusta Gutiérrez - Chief Complaint dyspnea - History of Present Illness The patient is an 81-year-old female with a history of congestive heart failure , coronary artery disease and chronic kidney disease. She now presents with newly diagnosed Hodgkin's lymphoma with extensive mediastinal and right axillary adenopathy, at least a stage III. The patient's oncologic history began in September when she had noticed a large mass under the right axilla. Axillary ultrasound performed on October 23, 2016 revealed multiple large complex masses within the axilla concerning for malignancy. According to the patient, she had a biopsy performed by a surgeon at [facility]. This pathology revealed Hodgkin's lymphoma. The patient was subsequently referred to Dr. Gutiérrez. The patient was considered a poor candidate for chemotherapy considering her congestive heart failure and chronic kidney disease. According to the patient's daughter, in the middle of October the patient was still doing pretty well overall. The patient was active, walking a quarter mile daily. The end of October, the patient's performance status began to decline. She developed progressively worsening dyspnea. On December 12, 2016 the patient had a PET/CT revealing extensive bilateral mediastinal and hilar adenopathy. There is also increased uptake in the right axillary masses the right sub-pectoral region and the mario hepatis as well. Additionally, there was a large left-sided pleural effusion with uptake along pleural nodules in both lungs. The patient's daughter reports that she has had no difficulty with fevers, night sweats but does report significant weight loss over the past 2 months. Over the past couple weeks, the patient's dyspnea has become progressively worse. She currently lives with her son-in-law, and she has required assistance even just walking to the bathroom. Review of Systems Constitutional: Denies chills, Denies fever Eyes: right discharge, denies blurred vision Ears, nose, mouth and throat: Denies neck lump Breasts: right: masses (Right axilla) Cardiovascular: Denies chest pain Respiratory: Reports cough, Reports dyspnea, Denies hemoptysis Gastrointestinal: Denies abdominal pain Genitourinary: Denies dysuria Neurological: Denies convulsions Past Medical History Past Medical History: Cancer, Heart Failure, Diabetes Mellitus, Hyperlipidemia, Hypertension, Myocardial Infarction ([place]) Additional Past Medical History / Comment(s): Coronary artery disease with previous coronary intervention and stenting, moderate to severe aortic stenosis , congestion heart failure with an ejection fraction of 35%, height changes lymphoma, diabetes mellitus, hypertension, hyperlipidemia Last Myocardial Infarction Date:: 1995 History of Any Multi-Drug Resistant Organisms: None Reported Past Surgical History: Heart Catheterization With Stent Additional Past Surgical History / Comment(s): Lymph node biopsy, coronary intervention with PCI and stenting Past Anesthesia/Blood Transfusion Reactions: No Reported Reaction Date of Last Stent Placement:: 1995 Past Psychological History: No Psychological Hx Reported Smoking Status: Former smoker Past Alcohol Use History: None Reported Past Drug Use History: None Reported Medications and Allergies Home Medications Medication Instructions Recorded Confirmed Type Isosorbide Mononitrate ER [Imdur] 30 mg PO DAILY 12/18/16 12/18/16 History Lisinopril [Zestril] 2.5 mg PO Q48H 12/18/16 12/18/16 History Loratadine [Claritin] 10 mg PO DAILY 12/18/16 12/18/16 History Metoprolol Succinate (ER) [Toprol 50 mg PO DAILY 12/18/16 12/18/16 History Xl] Pioglitazone [Actos] 30 mg PO DAILY 12/18/16 12/18/16 History Simvastatin [Zocor] 20 mg PO HS 12/18/16 12/18/16 History glipiZIDE [Glucotrol] 5 mg PO AC-BRKFST 12/18/16 12/18/16 History Allergies Allergy/AdvReac Type Severity Reaction Status Date / Time No Known Allergies Allergy Verified 12/18/16 18:36 Physical Exam Vitals: Vital Signs Temp Pulse Pulse Resp BP BP Pulse Ox 12/22/16 09:33 88 12/22/16 09:23 88 95 12/22/16 08:00 97.1 F L 58 L 20 80/49 97 12/22/16 04:00 97.3 F L 67 16 144/63 90 L 12/22/16 00:00 98.2 F 53 L 16 91/43 96 12/21/16 20:00 98 F 60 16 94/54 95 12/21/16 16:20 97.6 F 64 18 119/58 97 12/21/16 12:21 96.3 F L 71 18 105/47 90 L Intake and Output 0212/22/16 12/22/16 22:59 06:59 14:59 Intake Total 420 240 Output Total 400 250 Balance 20 -250 240 Intake: IV 420 0.9 NS 320 Piperacillin-Tazobactam 3 100 .375 gm In Dextrose/Water 1 50ml.bag @ 12.5 mls/hr IVPB Q8HR [facility] Rx#: [id number] Oral 240 Output: Urine 400 250 Other: Voiding Method Indwelling Catheter Indwelling Catheter Weight 56.9 kg - Constitutional General appearance: no average body habitus, no mild distress - EENT Eyes: PERRLA - Neck Neck: no lymphadenopathy - Respiratory Respiratory: left: diminished (left lower lung longoria dimished) - Cardiovascular Rhythm: regular Abnormal Heart Sounds: systolic murmur - Gastrointestinal General gastrointestinal: no distended, soft, no tenderness - Neurologic Neurologic: CNII-XII intact - Psychiatric Psychiatric: A&O x's 3 (Only X1 - patient unaware of which hospital she was in - incorrectly named year) Results CBC & Chem 7: 12/22/16 05:41 12/22/16 05:41 Labs: Abnormal Lab Results - Last 24 Hours (Table) 12/21/16 12/21/16 12/21/16 Range/Units 11:46 16:54 20:39 RBC (3.80-5.40) m/uL Hgb (11.4-16.0) gm/dL Hct (34.0-46.0) % MCV (80.0-100.0) fL MCHC (31.0-37.0) g/dL RDW (11.5-15.5) % Neutrophils # (1.3-7.7) k/uL Lymphocytes # (1.0-4.8) k/uL Sodium (137-145) mmol/L Potassium (3.5-5.1) mmol/L Chloride (98-107) mmol/L Carbon Dioxide (22-30) mmol/L BUN (7-17) mg/dL Creatinine (0.52-1.04) mg/dL Glucose (74-99) mg/dL POC Glucose (mg/dL) 159 H 175 H 50 L (75-99) mg/dL Calcium (8.4-10.2) mg/dL Phosphorus (2.5-4.5) mg/dL Albumin (3.5-5.0) g/dL 12/21/16 12/21/16 12/22/16 Range/Units 21:00 21:30 02:17 RBC (3.80-5.40) m/uL Hgb (11.4-16.0) gm/dL Hct (34.0-46.0) % MCV (80.0-100.0) fL MCHC (31.0-37.0) g/dL RDW (11.5-15.5) % Neutrophils # (1.3-7.7) k/uL Lymphocytes # (1.0-4.8) k/uL Sodium (137-145) mmol/L Potassium (3.5-5.1) mmol/L Chloride (98-107) mmol/L Carbon Dioxide (22-30) mmol/L BUN (7-17) mg/dL Creatinine (0.52-1.04) mg/dL Glucose (74-99) mg/dL POC Glucose (mg/dL) 44 L 177 H 113 H (75-99) mg/dL Calcium (8.4-10.2) mg/dL Phosphorus (2.5-4.5) mg/dL Albumin (3.5-5.0) g/dL 12/22/16 12/22/16 12/22/16 Range/Units 05:41 05:41 06:18 RBC 3.21 L (3.80-5.40) m/uL Hgb 9.9 L (11.4-16.0) gm/dL Hct 33.1 L (34.0-46.0) % MCV 103.1 H D (80.0-100.0) fL MCHC 29.9 L (31.0-37.0) g/dL RDW 15.8 H (11.5-15.5) % Neutrophils # 9.8 H (1.3-7.7) k/uL Lymphocytes # 0.1 L (1.0-4.8) k/uL Sodium 135 L (137-145) mmol/L Potassium 5.5 H (3.5-5.1) mmol/L Chloride 91 L (98-107) mmol/L Carbon Dioxide 33 H (22-30) mmol/L BUN 70 H (7-17) mg/dL Creatinine 2.40 H (0.52-1.04) mg/dL Glucose 124 H (74-99) mg/dL POC Glucose (mg/dL) 135 H (75-99) mg/dL Calcium 13.3 H* (8.4-10.2) mg/dL Phosphorus 6.5 H (2.5-4.5) mg/dL Albumin 2.9 L (3.5-5.0) g/dL 12/22/16 Range/Units 11:26 RBC (3.80-5.40) m/uL Hgb (11.4-16.0) gm/dL Hct (34.0-46.0) % MCV (80.0-100.0) fL MCHC (31.0-37.0) g/dL RDW (11.5-15.5) % Neutrophils # (1.3-7.7) k/uL Lymphocytes # (1.0-4.8) k/uL Sodium (137-145) mmol/L Potassium (3.5-5.1) mmol/L Chloride (98-107) mmol/L Carbon Dioxide (22-30) mmol/L BUN (7-17) mg/dL Creatinine (0.52-1.04) mg/dL Glucose (74-99) mg/dL POC Glucose (mg/dL) 137 H (75-99) mg/dL Calcium (8.4-10.2) mg/dL Phosphorus (2.5-4.5) mg/dL Albumin (3.5-5.0) g/dL Chest x-ray: report reviewed, image reviewed Assessment and Plan (1) Hodgkins lymphoma Status: Acute Plan: At this time, the patient appears to have advanced Hodgkin's lymphoma, and is not a good candidate for systemic therapy. Considering the widespread nature of her disease, and her poor performance status, she is being considered for palliative radiotherapy. The patient presents with bulky mediastinal and hilar adenopathy, and there is been some concern that her shortness of breath is secondary to this lymphoma. The patient also appears to have a large left- sided pleural effusion. This is also likely contributing, as well as the patient's history of congestive heart failure. The patient is undergoing thoracentesis today. This fluid should be sent for cytology, as there is some concern the patient has pleural studding of her disease. If the patient's breathing does improve following her thoracentesis, she may be able to tolerate lying flat for radiotherapy. I had a long discussion with the patient's daughter regarding radiotherapy. I explained the patient's daughter, that I recommend a short course of radiotherapy to palliate the patient's dyspnea. I did explain to the daughter, that further progression of the hilar disease could lead to lung collapse. The patient's daughter did express understanding that the treatment would be palliative in nature. I explained that the patient would first need a CT simulation for treatment planning. Treatment will be delivered Wednesday through Wednesday, 5 days a week for approximately 2 weeks. I explained the possible side effects of this treatment included, but are not limited to; fatigue, skin erythema, dysphagia, odynophagia , cough and dyspnea. I will reevaluate the patient this afternoon following her procedure. Time with Patient: Greater than 30
--- NOTE | 2016-12-22 12:00 | XR ---
EXAMINATION TYPE: XR chest 1V portable DATE OF EXAM: 12/22/2016 11:35 AM Comparison: 12/21/2016 Clinical History: 81-year-old female status post left thoracentesis Findings: Heart is borderline enlarged. Mild hyperinflation. There is prominent appearance to the right hilum. Decrease in size of the patient's left pleural effusion now with trace residual effusion. Residual le ft midlung opacity. Impression: 1. COPD with a decrease in patient's left pleural effusion, now trace residual effusion. No appreciab le pneumothorax. 2. Persistent infiltrate at the left midlung. 3. Suspect underlying pulmonary arterial hypertension.
[2016-12-22 12:40] LABS: RBC, Body Fluid 162 /uL
[2016-12-22] MEDS: SODIUM CHLORIDE 0.9% 1,000 ML IV SCH (12:41)
--- NOTE | 2016-12-22 13:55 | P.PN ---
Subjective Principal diagnosis: Shortness of breath secondary to congestive heart failure, systolic dysfunction , and left pleural effusion. This is an 81-year-old female patient with known history of coronary artery disease, moderate severe aortic stenosis and a congestion heart failure with an ejection fraction of 35-40% who was also recently diagnosed having Hodgkin's lymphoma. Note that the patient presented with extensive right axillary lymphadenopathy and a biopsy of the lymph node confirmed the presence of Hodgkin 's lymphoma. At that point the patient was referred to oncology and a PET scan was done that showed extensive superior mediastinal, and hilar lymphadenopathy in addition to large axillary masses/lymph nodes. There was also a left-sided pleural effusion and nodular density present in the right lower lobe measuring 1.8 cm and smaller nodularities present in the subpleural location without corresponding metabolic uptake. Some nodularity in the left lung was also seen adjacent to the pleural effusion. There was also some background emphysema noted and some nodules were also present within the portal region consistent with Hodgkin's lymphoma. The patient has not been started on treatment yet. I had a chance to interview the patient's daughter was at the bedside. She tells that her health in general has been progressively getting worse. Probably more than a month ago the patient was able to walk and move around and perform activities of daily life and her performance status has gotten progressively worse. She is losing weight. At this point she gets short of breath with ligament amount of activity and she presented to the hospital because of increased cough, chest congestion, wheezing. She denied having any chest pain. No fever chills or night sweats. She is producing clear to yellowish sputum. No cardiac arrhythmias have been noted. Note that she was also found to be in acute kidney injury in the creatinine was at 1.5. She is on oral hypoglycemic agents and she was having prolonged hypoglycemic events. She is a chronic smoker. No change in mental status. No seizure activity. Other comorbid conditions include hypertension and hyperlipidemia and diabetes mellitus. The patient is already been seen by cardiology and echocardiogram was repeated and the patient was started on IV Lasix suspecting an underlying component of CHF. Note that her admission sodium level was 128, renal function showed a creatinine of 1.5, proBNP level was at 14,800. Troponin is were mainly elevated at 0.02 respectively twice. On 12/20/2016 the patient is being seen in follow-up. She left bronchus spastic and wheezy however she continues to have significant chest congestion and shortness of breath. On examination she has marked diminished breath sounds bilaterally especially in the lung bases. She was started on examination broken dilators, steroids and empiric antibiotic coverage with IV Zosyn. Diuretics had to be cut down to oral Lasix 20 mg by mouth twice a day as the patient developed a prerenal component. Follow-up chest x-ray was ordered for tomorrow. Patient was seen today on 12/21/2016, continues to have some shortness of breath , continues to have diminished breath sounds at the bases, chest x-ray continues to show significant left-sided pleural effusion. Patient is improving but very slowly, hence I recommended an ultrasound of the chest, and I 'm considering left sided thoracentesis if the pleural effusion is large enough to be drained. That will be diagnostic and therapeutic at the same time. Labs were reviewed, renal profile seems to be getting worse with diuretics, BUN is 59 and creatinine is 2.20. Meds were reviewed, patient remains on bronchodilators, she remains on antibiotics, and diuretics as well as steroids. Patient was reevaluated today on 12/14/2016, she seems to be very tired, lethargic, sleepy, and extremely weak and fragile. Reviewed the ultrasound, and went ahead and recommended left sided thoracentesis which was done uneventfully. The fluid which was 750 mL drained from the left pleural space was sent for different diagnostic studies. Objective - Vital Signs Vital signs: Vital Signs Temp 97.1 F L 12/22/16 08:00 Pulse 60 12/22/16 12:00 Resp 18 12/22/16 12:00 BP 111/57 12/22/16 12:00 Pulse Ox 94 L 12/22/16 12:00 Intake & Output 12/21/16 12/22/16 12/22/16 18:59 06:59 18:59 Intake Total 670 210 480 Output Total 400 250 Balance 270 -40 480 Weight 56.6 kg 56.9 kg Intake: IV 210 210 0.9 NS 160 160 Piperacillin-Tazobactam 3 50 50 .375 gm In Dextrose/Water 1 50ml.bag @ 12.5 mls/hr IVPB Q8HR [facility] Rx#: [id number] Intake, IV Titration 0 Amount Insulin Regular 100 unit 0 In Sodium Chloride 0.9% 100 ml @ Titrate IV .Q0M [facility] Rx#:[id number] Oral 460 480 Output: Urine 400 250 Other: Voiding Method Indwelling Catheter Indwelling Catheter - Exam Physical Exam: Revealed an 81-year-old female in no distress. HEENT:[Neck is supple.] [No neck masses.] [No thyromegaly.] [No JVD.] Chest: [Diminished breath sounds and dullness at the left base.] Cardiac Exam: [Irregular rhythm, 3/6 systolic murmur throughout the precordium.] Abdomen: [Soft, nontender, no megaly, no rebound, no guarding, normal bowel sounds.] Extremities: [No clubbing, trace of bipedal edema, no cyanosis.] Neurological Exam: [No focal neurologic deficit.] - Labs CBC & Chem 7: 12/22/16 05:41 12/22/16 05:41 Labs: Abnormal Lab Results - Last 24 Hours (Table) 12/21/16 12/21/16 12/21/16 Range/Units 16:54 20:39 21:00 RBC (3.80-5.40) m/uL Hgb (11.4-16.0) gm/dL Hct (34.0-46.0) % MCV (80.0-100.0) fL MCHC (31.0-37.0) g/dL RDW (11.5-15.5) % Neutrophils # (1.3-7.7) k/uL Lymphocytes # (1.0-4.8) k/uL Sodium (137-145) mmol/L Potassium (3.5-5.1) mmol/L Chloride (98-107) mmol/L Carbon Dioxide (22-30) mmol/L BUN (7-17) mg/dL Creatinine (0.52-1.04) mg/dL Glucose (74-99) mg/dL POC Glucose (mg/dL) 175 H 50 L 44 L (75-99) mg/dL Calcium (8.4-10.2) mg/dL Phosphorus (2.5-4.5) mg/dL Albumin (3.5-5.0) g/dL 12/21/16 12/22/16 12/22/16 Range/Units 21:30 02: 05:41 RBC 3.21 L (3.80-5.40) m/uL Hgb 9.9 L (11.4-16.0) gm/dL Hct 33.1 L (34.0-46.0) % MCV 103.1 H D (80.0-100.0) fL MCHC 29.9 L (31.0-37.0) g/dL RDW 15.8 H (11.5-15.5) % Neutrophils # 9.8 H (1.3-7.7) k/uL Lymphocytes # 0.1 L (1.0-4.8) k/uL Sodium (137-145) mmol/L Potassium (3.5-5.1) mmol/L Chloride (98-107) mmol/L Carbon Dioxide (22-30) mmol/L BUN (7-17) mg/dL Creatinine (0.52-1.04) mg/dL Glucose (74-99) mg/dL POC Glucose (mg/dL) 177 H 113 H (75-99) mg/dL Calcium (8.4-10.2) mg/dL Phosphorus (2.5-4.5) mg/dL Albumin (3.5-5.0) g/dL 12/22/16 12/22/16 12/22/16 Range/Units 05:41 06:18 11:26 RBC (3.80-5.40) m/uL Hgb (11.4-16.0) gm/dL Hct (34.0-46.0) % MCV (80.0-100.0) fL MCHC (31.0-37.0) g/dL RDW (11.5-15.5) % Neutrophils # (1.3-7.7) k/uL Lymphocytes # (1.0-4.8) k/uL Sodium 135 L (137-145) mmol/L Potassium 5.5 H (3.5-5.1) mmol/L Chloride 91 L (98-107) mmol/L Carbon Dioxide 33 H (22-30) mmol/L BUN 70 H (7-17) mg/dL Creatinine 2.40 H (0.52-1.04) mg/dL Glucose 124 H (74-99) mg/dL POC Glucose (mg/dL) 135 H 137 H (75-99) mg/dL Calcium 13.3 H* (8.4-10.2) mg/dL Phosphorus 6.5 H (2.5-4.5) mg/dL Albumin 2.9 L (3.5-5.0) g/dL Assessment and Plan Plan: 1 dyspnea/hypoxemia, subacute with progressive worsening in respiratory status and genital. Chest x-ray that was done in the emergency department showed bilateral infiltrates worse on the left along with some left-sided pleural effusion and limited right-sided pleural effusion. Suspect a component of CHF in conjunction with possible pneumonia and at this point a postobstructive pneumonia needs to be considered especially the patient is bulky mediastinal lymphadenopathy involving lymph nodes along the left hilum On 12/20/2016, the patient has made minimal progress in her respiratory status. We will continue the current treatment which include a combination of bronchodilators, broad-spectrum antibiotics and systemic steroids and a follow- up chest x-ray was ordered for tomorrow. On 12/21/2015, patient continues to have some symptoms with minimal improvement, hence I recommended ultrasound of the chest, I may consider ultrasound guided thoracentesis. The purpose of that thoracentesis would be diagnostic and therapeutic at the same time. In the meantime we'll continue antibiotics. And diuretics. 2 Hodgkin's lymphoma with bulky axillary and mediastinal lymphadenopathy. The patient has also scattered subpleural and pulmonary nodules which have shown uptake along with a left-sided pleural effusion and this can be POTENTIALLY manifestations of Hodgkin's lymphoma. One concern is that the left hilar and infrahilar lymph nodes are causing mass effect and obstruction of the left lower lobe bronchus leading into a postobstructive pneumonia. 3 CHF with an ejection fraction of 35% 4 moderate severe aortic stenosis 5 coronary artery disease. The patient has had previous coronary intervention and stenting 6 COPD exacerbation 7 hypertension 8 chronic renal failure and based on previous creatinine monitoring the patient' s creatinine is now 2.40 9 hyponatremia 10 chronic anemia 11 sulfonylurea-induced hypoglycemia and the patient's hypoglycemic events have been treated appropriately 12 Hyperlipidemia 13 very impaired performance and functional status secondary to above-mentioned comorbidities 14 status post left-sided thoracentesis, fluid was nonbloody light yellow in color, sent for different diagnostic studies. The fluid may be transudate of based on the consistency of the fluid, but the final report is pending, and if his transudate of, it is cardiac in nature unless proven otherwise. Recommendation: Continue present treatment plan, discussed her condition with her daughter at bedside. And I also discussed her condition with the admitting physician. Discussed her condition with the radiation oncologist. Time with Patient: Less than 30
--- NOTE | 2016-12-22 14:13 | PN ---
Mrs. Mckenzie is an 81-year-old female with known history of ischemic cardiomyopathy, history of aortic stenosis diagnosed with Hodgkin lymphoma who presented with progressive dyspnea. She had pleural effusion. She had thoracentesis today by Dr. Kelly. Clinically, she looks weaker with no significant change in her breathing. She was evaluated by Dr. Gutiérrez and seen by Dr. Miranda for palliative radiation. Her renal functions are getting worse and her diuresis was stopped and she is getting IV fluid. Her appetite has been quite poor. PHYSICAL EXAMINATION: Her blood pressure 111/50 with a heart rate in 60s. Lungs with decreased breath sounds, more noted on the left side. HEART: Regular rate and rhythm. S1, S2, no S3, with systolic murmur, 3/6 at the left sternal border. No diastolic murmur. ABDOMEN: Soft, nontender. EXTREMITIES: No edema. IMPRESSION: 1. Hodgkin lymphoma with possibly axillary mediastinal lymphadenopathy. 2. Progressive dyspnea. 3. History of ischemic cardiomyopathy has not changed since 1994. 4. Moderate to severe aortic stenosis. 5. Worsening renal failure. RECOMMENDATION: I had a long discussion with the patient as well as her daughter. Unfortunately, the prognosis is quite poor. I will continue supportive care. Follow her renal function. The patient is a NO CODE. Radiation Oncology will be evaluating her again. Will await the results for fluid samples. Depending on her progress, further recommendation will be made.
[2016-12-22 14:29] LABS: Body Fluid Comment Few Mesothelial
--- NOTE | 2016-12-22 15:42 | P.PN ---
Subjective Patient had thoracentesis today with removal of 800 cc fluid. Following this, she did not have appreciable change in her breathing. She is still very fatigued at the bedside. She falls asleep intermittently during speaking with her. Objective - Vital Signs Vital signs: Vital Signs Temp 97.1 F L 12/22/16 08:00 Pulse 60 12/22/16 12:00 Resp 18 12/22/16 12:00 BP 111/57 12/22/16 12:00 Pulse Ox 94 L 12/22/16 12:00 Intake & Output 12/21/16 12/22/16 12/22/16 18:59 06:59 18:59 Intake Total 670 210 480 Output Total 400 250 Balance 270 -40 480 Weight 56.6 kg 56.9 kg Intake: IV 210 210 0.9 NS 160 160 Piperacillin-Tazobactam 3 50 50 .375 gm In Dextrose/Water 1 50ml.bag @ 12.5 mls/hr IVPB Q8HR ERI Rx#: [id number] Intake, IV Titration 0 Amount Insulin Regular 100 unit 0 In Sodium Chloride 0.9% 100 ml @ Titrate IV .Q0M ERI Rx#:[id number] Oral 460 480 Output: Urine 400 250 Other: Voiding Method Indwelling Catheter Indwelling Catheter - Constitutional General appearance: Present: average body habitus. Absent: mild distress - EENT Eyes: Present: PERRLA - Neck Neck: Absent: lymphadenopathy - Respiratory Respiratory: left: diminished - Cardiovascular Rhythm: regular Abnormal Heart Sounds: Present: systolic murmur - Gastrointestinal General gastrointestinal: Absent: tenderness - Neurologic Neurologic: Present: CNII-XII intact - Musculoskeletal Musculoskeletal: Present: generalized weakness - Psychiatric Psychiatric: Absent: A&O x's 3 (Patient does not seem appreciably alert), appropriate affect, intact judgment & insight - Labs CBC & Chem 7: 12/22/16 05:41 12/22/16 05:41 Labs: Abnormal Lab Results - Last 24 Hours (Table) 12/21/16 12/21/16 12/21/16 Range/Units 16:54 20:39 21:00 RBC (3.80-5.40) m/uL Hgb (11.4-16.0) gm/dL Hct (34.0-46.0) % MCV (80.0-100.0) fL MCHC (31.0-37.0) g/dL RDW (11.5-15.5) % Neutrophils # (1.3-7.7) k/uL Lymphocytes # (1.0-4.8) k/uL Sodium (137-145) mmol/L Potassium (3.5-5.1) mmol/L Chloride (98-107) mmol/L Carbon Dioxide (22-30) mmol/L BUN (7-17) mg/dL Creatinine (0.52-1.04) mg/dL Glucose (74-99) mg/dL POC Glucose (mg/dL) 175 H 50 L 44 L (75-99) mg/dL Calcium (8.4-10.2) mg/dL Phosphorus (2.5-4.5) mg/dL Albumin (3.5-5.0) g/dL 12/21/16 12/22/16 12/22/16 Range/Units 21:30 02:17 05:41 RBC 3.21 L (3.80-5.40) m/uL Hgb 9.9 L (11.4-16.0) gm/dL Hct 33.1 L (34.0-46.0) % MCV 103.1 H D (80.0-100.0) fL MCHC 29.9 L (31.0-37.0) g/dL RDW 15.8 H (11.5-15.5) % Neutrophils # 9.8 H (1.3-7.7) k/uL Lymphocytes # 0.1 L (1.0-4.8) k/uL Sodium (137-145) mmol/L Potassium (3.5-5.1) mmol/L Chloride (98-107) mmol/L Carbon Dioxide (22-30) mmol/L BUN (7-17) mg/dL Creatinine (0.52-1.04) mg/dL Glucose (74-99) mg/dL POC Glucose (mg/dL) 177 H 113 H (75-99) mg/dL Calcium (8.4-10.2) mg/dL Phosphorus (2.5-4.5) mg/dL Albumin (3.5-5.0) g/dL 12/22/16 12/22/16 12/22/16 Range/Units 05:41 06:18 11:26 RBC (3.80-5.40) m/uL Hgb (11.4-16.0) gm/dL Hct (34.0-46.0) % MCV (80.0-100.0) fL MCHC (31.0-37.0) g/dL RDW (11.5-15.5) % Neutrophils # (1.3-7.7) k/uL Lymphocytes # (1.0-4.8) k/uL Sodium 135 L (137-145) mmol/L Potassium 5.5 H (3.5-5.1) mmol/L Chloride 91 L (98-107) mmol/L Carbon Dioxide 33 H (22-30) mmol/L BUN 70 H (7-17) mg/dL Creatinine 2.40 H (0.52-1.04) mg/dL Glucose 124 H (74-99) mg/dL POC Glucose (mg/dL) 135 H 137 H (75-99) mg/dL Calcium 13.3 H* (8.4-10.2) mg/dL Phosphorus 6.5 H (2.5-4.5) mg/dL Albumin 2.9 L (3.5-5.0) g/dL Assessment and Plan (1) Hodgkins lymphoma Status: Acute Plan: Unfortunately, the patient continues to have poor performance status and has not had symptomatic improvement following thoracentesis. I had a long discussion with the patient's daughter and I explained that I felt radiotherapy would not improve her situation appreciably. I did explain that considering her poor performance status, her benefit would be minimal. I recommended the patient be seen and assessed by hospice. The patient's daughter understands these recommendations. Time with Patient: Less than 30
[2016-12-22 16:24] LABS: Glucose,Whole Blood 174 mg/dL (75-99)
[2016-12-22] MEDS ORDERED: ALPRAZolam 0.5 MG TAB PO PRN (16:56)
[2016-12-22 20:34] LABS: Glucose,Whole Blood 149 mg/dL (75-99)
[2016-12-22] MEDS ORDERED: LEVOFLOXACIN 500MG-D5W PMX 500 MG in DEXTROSE/WATER 1 100ML.BAG IVPB SCH (21:00)
--- NOTE | 2016-12-22 22:01 | PCN ---
OPERATIVE REPORT: Left-sided thoracentesis. PREOPERATIVE DIAGNOSIS: Left pleural effusion. POSTOPERATIVE DIAGNOSIS: Left pleural effusion. ANESTHESIA USED: 2 mL of 1% lidocaine. PROCEDURE: Patient was placed in the sitting upright position. The area below the left scapula was prepared in a sterile fashion and drapes were applied. Fluid was earlier localized by ultrasound, and at the level of the eighth intercostal space and tip of the scapula, the area was locally anesthetized. Then a 26-gauge needle was inserted at the same site until the fluid was localized. Then a standard thoracentesis catheter and needle were used, needle was inserted at the same site, advanced into the pleural space. Once the fluid was obtained, the catheter was advanced out of the needle and the needle was pulled out of the pleural space. Freely flowing fluid was removed and roughly 750 mL of clear slightly yellow fluid, vivek color, removed from the left pleural space, was nonbloody. Fluid was sent for different diagnostic studies. The procedure was well tolerated. No evidence of any immediate complications.
[2016-12-22] MEDS: ATORVASTATIN 10 MG TAB PO SCH (22:03)
[2016-12-22] MEDS: INSULIN GLARGINE 100 UNIT/ML 10 ML VIAL SQ SCH (22:04)
[2016-12-22] MEDS: HEPARIN SODIUM,PORCINE 5,000 UNIT/ML 1 ML VIAL SQ SCH (22:04)
--- NOTE | 2016-12-22 22:29 | P.PN ---
Subjective The patient's breathing is somewhat improved. However she remains quite weak . Appetite is markedly reduced Objective - Vital Signs Vital signs: Vital Signs Temp 97.1 F L 12/22/16 08:00 Pulse 82 12/22/16 19:09 Resp 50 H 12/22/16 16:00 BP 112/56 12/22/16 16:00 Pulse Ox 80 L 12/22/16 16:00 Intake & Output 12/22/16 12/22/16 12/23/16 06:59 18:59 06:59 Intake Total 210 580 Output Total 250 1200 Balance -40 -620 Weight 56.9 kg Intake: IV 210 0.9 NS 160 Piperacillin-Tazobactam 3 50 .375 gm In Dextrose/Water 1 50ml.bag @ 12.5 mls/hr IVPB Q8HR ERI Rx#: [id number] Intake, IV Titration 100 Amount Levofloxacin 500Mg-D5w 100 Pmx 500 mg In Dextrose/ Water 1 100ml.bag @ 100 mls/hr IVPB Q48H ERI Rx#: [id number] Oral 480 Output: Urine 250 450 Other 750 Other: Voiding Method Indwelling Catheter Indwelling Catheter # Voids 1 # Bowel Movements 2 - Constitutional Constitutional Comment(s): Very weak and fatigued General appearance: Present: no acute distress - EENT Eyes: Present: PERRLA ENT: Present: normal oropharynx - Respiratory Respiratory: bilateral: dullness - Cardiovascular Rhythm: regular Abnormal Heart Sounds: Present: systolic murmur - Gastrointestinal General gastrointestinal: Present: normal bowel sounds, soft - Integumentary Integumentary: Present: normal - Neurologic Neurologic: Present: CNII-XII intact - Musculoskeletal Musculoskeletal: Present: generalized weakness - Psychiatric Psychiatric Comment(s): Very weak. Falls asleep intermittently Psychiatric: Present: A&O x's 3 - Labs CBC & Chem 7: 12/22/16 05:41 12/22/16 05:41 Labs: Abnormal Lab Results - Last 24 Hours (Table) 12/22/16 12/22/16 12/22/16 Range/Units 02: 05:41 05:41 RBC 3.21 L (3.80-5.40) m/uL Hgb 9.9 L (11.4-16.0) gm/dL Hct 33.1 L (34.0-46.0) % MCV 103.1 H D (80.0-100.0) fL MCHC 29.9 L (31.0-37.0) g/dL RDW 15.8 H (11.5-15.5) % Neutrophils # 9.8 H (1.3-7.7) k/uL Lymphocytes # 0.1 L (1.0-4.8) k/uL Sodium 135 L (137-145) mmol/L Potassium 5.5 H (3.5-5.1) mmol/L Chloride 91 L (98-107) mmol/L Carbon Dioxide 33 H (22-30) mmol/L BUN 70 H (7-17) mg/dL Creatinine 2.40 H (0.52-1.04) mg/dL Glucose 124 H (74-99) mg/dL POC Glucose (mg/dL) 113 H (75-99) mg/dL Calcium 13.3 H* (8.4-10.2) mg/dL Phosphorus 6.5 H (2.5-4.5) mg/dL Albumin 2.9 L (3.5-5.0) g/dL 12/22/16 12/22/16 12/22/16 Range/Units 06:18 11:26 16:19 RBC (3.80-5.40) m/uL Hgb (11.4-16.0) gm/dL Hct (34.0-46.0) % MCV (80.0-100.0) fL MCHC (31.0-37.0) g/dL RDW (11.5-15.5) % Neutrophils # (1.3-7.7) k/uL Lymphocytes # (1.0-4.8) k/uL Sodium (137-145) mmol/L Potassium (3.5-5.1) mmol/L Chloride (98-107) mmol/L Carbon Dioxide (22-30) mmol/L BUN (7-17) mg/dL Creatinine (0.52-1.04) mg/dL Glucose (74-99) mg/dL POC Glucose (mg/dL) 135 H 137 H 174 H (75-99) mg/dL Calcium (8.4-10.2) mg/dL Phosphorus (2.5-4.5) mg/dL Albumin (3.5-5.0) g/dL 12/22/16 Range/Units 20:32 RBC (3.80-5.40) m/uL Hgb (11.4-16.0) gm/dL Hct (34.0-46.0) % MCV (80.0-100.0) fL MCHC (31.0-37.0) g/dL RDW (11.5-15.5) % Neutrophils # (1.3-7.7) k/uL Lymphocytes # (1.0-4.8) k/uL Sodium (137-145) mmol/L Potassium (3.5-5.1) mmol/L Chloride (98-107) mmol/L Carbon Dioxide (22-30) mmol/L BUN (7-17) mg/dL Creatinine (0.52-1.04) mg/dL Glucose (74-99) mg/dL POC Glucose (mg/dL) 149 H (75-99) mg/dL Calcium (8.4-10.2) mg/dL Phosphorus (2.5-4.5) mg/dL Albumin (3.5-5.0) g/dL Microbiology - Last 24 Hours (Table) 12/22/16 11:00 Body Fluid Culture - Preliminary Pleural Fluid 12/22/16 11:00 Acid Fast Bacilli Culture - Preliminary Pleural Fluid 12/22/16 11:00 Fungal Culture - Preliminary Pleural Fluid Assessment and Plan (1) Congestive heart failure Narrative/Plan: My exam, lung condition does appear to be improved. However the patient still remains short of breath and very weak. Continue treatment per admitting service and cardiology Status: Acute (2) Hodgkins lymphoma Narrative/Plan: The case was discussed by Dr. Gutiérrez with the patient and her daughter. The patient is not a candidate for standard chemotherapy, specifically ABVD, due to her cardiac issues. While alternative chemotherapy regimens can be utilized, at this time she is too weak to tolerate the same. Chest radiotherapy can be utilized for palliation. However this would only improve her breathing. Her breathing is significantly compromise from her cardiac issues, and it is not clear how much benefit to radiation would provide. In addition given her very poor performance status, it is not clear if she would even be able to tolerate radiation. Radiation oncology has been consulted. If the patient performance status is not improved with treatment of her cardiac issues, then comfort care would be reasonable to consider. The same recommendation was made by Dr. Gutiérrez to the patient and her family Status: Acute
[2016-12-23 04:10] LABS: Glucose,Whole Blood 180 mg/dL (75-99)
[2016-12-23 06:13] LABS: Glucose,Whole Blood 198 mg/dL (75-99)
[2016-12-23] MEDS: INSULIN LISPRO (humaLOG) 300 UNIT/3 ML VIAL SQ SCH ×4 (06:23→12:49)
[2016-12-23 06:47] LABS: Basophils % (A) 0 %; CH 31.1; CHCM 30.6; Eosinophils # (A) 0.1 k/uL (0-0.7); Eosinophils % (A) 1 %; HCT 36.1 % (34.0-46.0); HDW 2.93; HGB 11.1 gm/dL (11.4-16.0); Hypochromasia Moderate; Luc # (Auto) 0.07; Luc % (Auto) 1; Lymphocytes # (A) 0.3 k/uL (1.0-4.8); Lymphocytes % (A) 3 %; MCH 31.3 pg (25.0-35.0); MCHC 30.7 g/dL (31.0-37.0); Macrocytosis Slight; Mean Platelet Volume 6.8; Monocytes # (A) 0.2 k/uL (0-1.0); Monocytes % (A) 2 %; Neutrophils # (A) 11.5 k/uL (1.3-7.7); Neutrophils % (A) 94 %; RBC 3.53 m/uL (3.80-5.40); RDW 15.8 % (11.5-15.5); WBC 12.2 k/uL (3.8-10.6); WBC (Perox) 13.28
[2016-12-23 06:57] LABS: Magnesium 2.1 mg/dL (1.6-2.3); Phosphorous 5.5 mg/dL (2.5-4.5); Potassium 4.9 mmol/L (3.5-5.1); Total Bilirubin 0.6 mg/dL (0.2-1.3); Total Protein 7.6 g/dL (6.3-8.2)
[2016-12-23] MEDS: HEPARIN SODIUM,PORCINE 5,000 UNIT/ML 1 ML VIAL SQ SCH (08:17)
[2016-12-23] MEDS: SODIUM CHLORIDE 0.9% 1,000 ML IV SCH (08:17)
[2016-12-23] MEDS: LORATADINE 10 MG TAB PO SCH (08:18)
[2016-12-23] MEDS: methylPREDNISolone SOD SUCCI 40 MG/ML 1 ML VIAL IV SCH (08:18)
[2016-12-23] MEDS: METOPROLOL SUCCINATE (ER) 50 MG TAB.ER.24H PO SCH (08:18)
[2016-12-23] MEDS: ASPIRIN 81 MG CHEW PO SCH (08:18)
[2016-12-23] MEDS: PIPERACILLIN-TAZOBACTAM 3.375 GM in DEXTROSE/WATER 1 50ML.BAG IVPB SCH (08:21)
[2016-12-23] MEDS: IPRATROPIUM-ALBUTEROL 3 ML NEB INHALATION SCH ×3 (09:07→16:52)
--- NOTE | 2016-12-23 11:24 | CDI ---
In responding to this query, please exercise your independent professional judgment. The [facility] Coding Staff and Clinical Documentation Specialists appreciate your assistance in clarifying documentation, maintaining compliance with coding guidelines, accurately documenting patients condition and capturing severity of illness. The fact that a question is asked does not imply that any particular answer is desired or expected. Communication forms are a method of clarifying documentation and are not made part of the Legal Health Record. Thank you in advance for your clarification. Last Revision, December [address] [facility] [facility] [place] [address] Documentation Clarification Form Date: 12/21/2016 12:35:00 PM From: Gurpreet Hurley, RN, BSN, CDI Admit Date: 12/18/2016 7:44:00 PM Patient Name: Denny Mckenzie Visit Number: [id number] Discharge Date: Dr. Roman Ayon: There is conflicting documentation in the medical record: "Acute respiratory failure" is documented in the ED report "POA progressive symptomatic shortness of breath" is documented in the ED report "Progressive dyspnea w/cough" is documented in the cardiology consult "Dyspnea/hypoxemia-subacute with progressive worsening in respiratory status" is documented in the pulmonary consult History/Risk Factors: 81 yo female with a history of Hodkin's lymphoma (recent diagnosis), CHF, HTN, CRF and ischemic cardiomyopathy presents with c/o MARIA GUADALUPE, weight gain and b/l LE edema. She is being treated for acute exacerbation of CHF as well as post-obstructive PNA. Tobacco use: former smoker Home oxygen: none Clinical Indicators: Vital signs/Pulse oximetry: 121/58, 85, 18-34, 97.5, 85% on RA Lung/Breathing assessment: Per H&P: posterior diminished at the bases, upper airways bronchial breath sounds. Per pulmonary consult: "lung sounds are diminished bilaterally along with diffuse wheezes throughout the lung longoria bilaterally and breath sounds are diminished in the left lung base alond with some dullness to percussion" Treatment: Lasix 60mg IVP x1, Lasix 40mg IVP q12 then PO, Levaquin, Zosyn, Lovenox, Solumedrol, thoracentesis Breathing tx: adriane On 12/22: Spo2: 80-88% on 3-6L and RR of 26-50 Current Vitals as of 12/23: Spo2 of 90% on 3L, RR: 26 In your professional opinion, can you please clarify if these findings signify one of the following conditions? Acuity: o Acute o Chronic o Acute on Chronic Respiratory Status: o Respiratory failure o Respiratory failure with hypercapnia o Respiratory failure with hypoxia o Acute Respiratory Distress o Other Diagnosis, please specify o Unable to determine Please document in your progress notes and discharge summary in order to capture severity of illness and risk of mortality. Include clinical findings that support your diagnosis. FYI: Press F11 to launch patient chart. Place X here if this finding has no clinical significance, is not applicable or if you are not able to provide any additional documentation. We'll update progress note Acute hypoxic respiratory failure We will update progress note MTDD
[2016-12-23 11:36] LABS: Glucose,Whole Blood 220 mg/dL (75-99)
--- NOTE | 2016-12-23 13:06 | P.PN ---
Subjective No clinical change since yesterday. Patient is lethargic but easily arousable. Objective - Vital Signs Vital signs: Vital Signs Temp 97.4 F L 12/23/16 04:00 Pulse 80 12/23/16 09:17 Resp 26 H 12/23/16 04:00 BP 106/53 12/23/16 08:00 Pulse Ox 90 L 12/23/16 08:00 Intake & Output 12/22/16 12/23/16 12/23/16 18:59 06:59 18:59 Intake Total 580 930 240 Output Total 1200 250 Balance -620 680 240 Weight 55.9 kg Intake: IV 580 0.9 NS 580 Intake, IV Titration 100 150 Amount Levofloxacin 500Mg-D5w 100 100 Pmx 500 mg In Dextrose/ Water 1 100ml.bag @ 100 mls/hr IVPB Q48H ERI Rx#: [id number] Piperacillin-Tazobactam 3 50 .375 gm In Dextrose/Water 1 50ml.bag @ 12.5 mls/hr IVPB Q12HR ERI Rx#: [id number] Oral 480 200 240 Output: Urine 450 250 Other 750 Other: Voiding Method Indwelling Catheter Indwelling Catheter Indwelling Catheter # Voids 1 1 # Bowel Movements 2 1 - Exam General: The patient is awake and alert, in no distress Eye: there is normal conjunctiva bilaterally. Neck: The neck is supple, there is no JVD. Cardiovascular: Normal S1-S2, no S3-S4, no murmurs. Respiratory: Lungs clear to auscultation bilaterally Gastrointestinal: Abdomen is soft, nontender Musculoskeletal: There is no pedal edema. Neurological:. Speech is normal. Skin: Skin is warm and dry - Labs CBC & Chem 7: 12/23/16 06:17 12/23/16 06:17 Labs: Abnormal Lab Results - Last 24 Hours (Table) 12/22/16 12/22/16 12/23/16 Range/Units 16:19 20:32 04:09 WBC (3.8-10.6) k/uL RBC (3.80-5.40) m/uL Hgb (11.4-16.0) gm/dL MCV (80.0-100.0) fL MCHC (31.0-37.0) g/dL RDW (11.5-15.5) % Neutrophils # (1.3-7.7) k/uL Lymphocytes # (1.0-4.8) k/uL Chloride (98-107) mmol/L Carbon Dioxide (22-30) mmol/L BUN (7-17) mg/dL Creatinine (0.52-1.04) mg/dL Glucose (74-99) mg/dL POC Glucose (mg/dL) 174 H 149 H 180 H (75-99) mg/dL Calcium (8.4-10.2) mg/dL Phosphorus (2.5-4.5) mg/dL Albumin (3.5-5.0) g/dL 12/23/16 12/23/16 12/23/16 Range/Units 06:13 06:17 06:17 WBC 12.2 H (3.8-10.6) k/uL RBC 3.53 L (3.80-5.40) m/uL Hgb 11.1 L (11.4-16.0) gm/dL MCV 102.0 H (80.0-100.0) fL MCHC 30.7 L (31.0-37.0) g/dL RDW 15.8 H (11.5-15.5) % Neutrophils # 11.5 H (1.3-7.7) k/uL Lymphocytes # 0.3 L (1.0-4.8) k/uL Chloride 93 L (98-107) mmol/L Carbon Dioxide 32 H (22-30) mmol/L BUN 77 H (7-17) mg/dL Creatinine 2.22 H (0.52-1.04) mg/dL Glucose 209 H (74-99) mg/dL POC Glucose (mg/dL) 198 H (75-99) mg/dL Calcium 13.0 H* (8.4-10.2) mg/dL Phosphorus 5.5 H (2.5-4.5) mg/dL Albumin 3.4 L (3.5-5.0) g/dL 12/23/16 Range/Units 11:33 WBC (3.8-10.6) k/uL RBC (3.80-5.40) m/uL Hgb (11.4-16.0) gm/dL MCV (80.0-100.0) fL MCHC (31.0-37.0) g/dL RDW (11.5-15.5) % Neutrophils # (1.3-7.7) k/uL Lymphocytes # (1.0-4.8) k/uL Chloride (98-107) mmol/L Carbon Dioxide (22-30) mmol/L BUN (7-17) mg/dL Creatinine (0.52-1.04) mg/dL Glucose (74-99) mg/dL POC Glucose (mg/dL) 220 H (75-99) mg/dL Calcium (8.4-10.2) mg/dL Phosphorus (2.5-4.5) mg/dL Albumin (3.5-5.0) g/dL Microbiology - Last 24 Hours (Table) 12/22/16 11:00 Gram Stain - Preliminary Pleural Fluid Body Fluid Culture - Preliminary 12/22/16 11:00 Acid Fast Bacilli Culture - Preliminary Pleural Fluid 12/22/16 11:00 Fungal Culture - Preliminary Pleural Fluid Assessment and Plan Plan: Impression: - Present on admission progressive symptomatic shortness of breath multifactorial acute exacerbation systolic congestive heart failure with underlying pneumonia and pleural effusion - Acute hypoxic respiratory failure - Suspected postobstructive pneumonia on broad-spectrum antibiotic - Recently diagnosed Hodgkin's lymphoma with bulky axillary and the lara lymphadenopathy: Seen and evaluated by heme/onc. Not a candidate for systemic chemotherapy given overall Debility - Moderate to severe aortic stenosis - History of coronary artery disease prior [place] - Hypertension essential - Systolic heart failure exacerbation: Present on admission, EF of 35-40%. seen and evaluated by cardiology. - Present on admission acute renal failure - Stage IIIB chronic kidney disease - Type 2 diabetes non-insulin requiring hemoglobin A1c 7.9 - Present on admission electrolyte abnormality hyponatremia, hyperkalemia - Hyperlipidemia Plan - Plan to meet with hospice today. If patient and her family agreeable with discharge to home with hospice tomorrow.
--- NOTE | 2016-12-23 13:22 | P.PN ---
Subjective Principal diagnosis: Shortness of breath secondary to congestive heart failure, systolic dysfunction , and left pleural effusion. This is an 81-year-old female patient with known history of coronary artery disease, moderate severe aortic stenosis and a congestion heart failure with an ejection fraction of 35-40% who was also recently diagnosed having Hodgkin's lymphoma. Note that the patient presented with extensive right axillary lymphadenopathy and a biopsy of the lymph node confirmed the presence of Hodgkin 's lymphoma. At that point the patient was referred to oncology and a PET scan was done that showed extensive superior mediastinal, and hilar lymphadenopathy in addition to large axillary masses/lymph nodes. There was also a left-sided pleural effusion and nodular density present in the right lower lobe measuring 1.8 cm and smaller nodularities present in the subpleural location without corresponding metabolic uptake. Some nodularity in the left lung was also seen adjacent to the pleural effusion. There was also some background emphysema noted and some nodules were also present within the portal region consistent with Hodgkin's lymphoma. The patient has not been started on treatment yet. I had a chance to interview the patient's daughter was at the bedside. She tells that her health in general has been progressively getting worse. Probably more than a month ago the patient was able to walk and move around and perform activities of daily life and her performance status has gotten progressively worse. She is losing weight. At this point she gets short of breath with ligament amount of activity and she presented to the hospital because of increased cough, chest congestion, wheezing. She denied having any chest pain. No fever chills or night sweats. She is producing clear to yellowish sputum. No cardiac arrhythmias have been noted. Note that she was also found to be in acute kidney injury in the creatinine was at 1.5. She is on oral hypoglycemic agents and she was having prolonged hypoglycemic events. She is a chronic smoker. No change in mental status. No seizure activity. Other comorbid conditions include hypertension and hyperlipidemia and diabetes mellitus. The patient is already been seen by cardiology and echocardiogram was repeated and the patient was started on IV Lasix suspecting an underlying component of CHF. Note that her admission sodium level was 128, renal function showed a creatinine of 1.5, proBNP level was at 14,800. Troponin is were mainly elevated at 0.02 respectively twice. On 12/20/2016 the patient is being seen in follow-up. She left bronchus spastic and wheezy however she continues to have significant chest congestion and shortness of breath. On examination she has marked diminished breath sounds bilaterally especially in the lung bases. She was started on examination broken dilators, steroids and empiric antibiotic coverage with IV Zosyn. Diuretics had to be cut down to oral Lasix 20 mg by mouth twice a day as the patient developed a prerenal component. Follow-up chest x-ray was ordered for tomorrow. Patient was seen today on 12/21/2016, continues to have some shortness of breath , continues to have diminished breath sounds at the bases, chest x-ray continues to show significant left-sided pleural effusion. Patient is improving but very slowly, hence I recommended an ultrasound of the chest, and I 'm considering left sided thoracentesis if the pleural effusion is large enough to be drained. That will be diagnostic and therapeutic at the same time. Labs were reviewed, renal profile seems to be getting worse with diuretics, BUN is 59 and creatinine is 2.20. Meds were reviewed, patient remains on bronchodilators, she remains on antibiotics, and diuretics as well as steroids. Patient was reevaluated today on 12/22/2016, she seems to be very tired, lethargic, sleepy, and extremely weak and fragile. Reviewed the ultrasound, and went ahead and recommended left sided thoracentesis which was done uneventfully. The fluid which was 750 mL drained from the left pleural space was sent for different diagnostic studies. Patient was seen today on 12/23/2016, remains about the same. Quite tired, lethargic, extremely weak and frail fragile. Labs were all reviewed, her BUN is up to 77 creatinine is 2.22. Studies from the pleural effusion are still pending. The admitting physician is already discussing with family hospice plans, and I believe that is very appropriate considering the patient's overall clinical situation. Objective - Vital Signs Vital signs: Vital Signs Temp 97.4 F L 12/23/16 04:00 Pulse 80 12/23/16 09:17 Resp 26 H 12/23/16 04:00 BP 106/53 12/23/16 08:00 Pulse Ox 90 L 12/23/16 08:00 Intake & Output 12/22/16 12/23/16 12/23/16 18:59 06:59 18:59 Intake Total 580 930 240 Output Total 1200 250 Balance -620 680 240 Weight 55.9 kg Intake: IV 580 0.9 NS 580 Intake, IV Titration 100 150 Amount Levofloxacin 500Mg-D5w 100 100 Pmx 500 mg In Dextrose/ Water 1 100ml.bag @ 100 mls/hr IVPB Q48H ERI Rx#: [id number] Piperacillin-Tazobactam 3 50 .375 gm In Dextrose/Water 1 50ml.bag @ 12.5 mls/hr IVPB Q12HR ERI Rx#: [id number] Oral 480 200 240 Output: Urine 450 250 Other 750 Other: Voiding Method Indwelling Catheter Indwelling Catheter Indwelling Catheter # Voids 1 1 # Bowel Movements 2 1 - Exam Physical Exam: Revealed an 81-year-old female in no distress. HEENT:[Neck is supple.] [No neck masses.] [No thyromegaly.] [No JVD.] Chest: [Diminished breath sounds and dullness at the left base.] Cardiac Exam: [Irregular rhythm, 3/6 systolic murmur throughout the precordium.] Abdomen: [Soft, nontender, no megaly, no rebound, no guarding, normal bowel sounds.] Extremities: [No clubbing, trace of bipedal edema, no cyanosis.] Neurological Exam: [No focal neurologic deficit.] - Labs CBC & Chem 7: 12/23/16 06:17 12/23/16 06:17 Labs: Abnormal Lab Results - Last 24 Hours (Table) 12/22/16 12/22/16 12/23/16 Range/Units 16:19 20:32 04:09 WBC (3.8-10.6) k/uL RBC (3.80-5.40) m/uL Hgb (11.4-16.0) gm/dL MCV (80.0-100.0) fL MCHC (31.0-37.0) g/dL RDW (11.5-15.5) % Neutrophils # (1.3-7.7) k/uL Lymphocytes # (1.0-4.8) k/uL Chloride (98-107) mmol/L Carbon Dioxide (22-30) mmol/L BUN (7-17) mg/dL Creatinine (0.52-1.04) mg/dL Glucose (74-99) mg/dL POC Glucose (mg/dL) 174 H 149 H 180 H (75-99) mg/dL Calcium (8.4-10.2) mg/dL Phosphorus (2.5-4.5) mg/dL Albumin (3.5-5.0) g/dL 12/23/16 12/23/16 12/23/16 Range/Units 06:13 06:17 06:17 WBC 12.2 H (3.8-10.6) k/uL RBC 3.53 L (3.80-5.40) m/uL Hgb 11.1 L (11.4-16.0) gm/dL MCV 102.0 H (80.0-100.0) fL MCHC 30.7 L (31.0-37.0) g/dL RDW 15.8 H (11.5-15.5) % Neutrophils # 11.5 H (1.3-7.7) k/uL Lymphocytes # 0.3 L (1.0-4.8) k/uL Chloride 93 L (98-107) mmol/L Carbon Dioxide 32 H (22-30) mmol/L BUN 77 H (7-17) mg/dL Creatinine 2.22 H (0.52-1.04) mg/dL Glucose 209 H (74-99) mg/dL POC Glucose (mg/dL) 198 H (75-99) mg/dL Calcium 13.0 H* (8.4-10.2) mg/dL Phosphorus 5.5 H (2.5-4.5) mg/dL Albumin 3.4 L (3.5-5.0) g/dL 12/23/16 Range/Units 11:33 WBC (3.8-10.6) k/uL RBC (3.80-5.40) m/uL Hgb (11.4-16.0) gm/dL MCV (80.0-100.0) fL MCHC (31.0-37.0) g/dL RDW (11.5-15.5) % Neutrophils # (1.3-7.7) k/uL Lymphocytes # (1.0-4.8) k/uL Chloride (98-107) mmol/L Carbon Dioxide (22-30) mmol/L BUN (7-17) mg/dL Creatinine (0.52-1.04) mg/dL Glucose (74-99) mg/dL POC Glucose (mg/dL) 220 H (75-99) mg/dL Calcium (8.4-10.2) mg/dL Phosphorus (2.5-4.5) mg/dL Albumin (3.5-5.0) g/dL Microbiology - Last 24 Hours (Table) 12/22/16 11:00 Gram Stain - Preliminary Pleural Fluid Body Fluid Culture - Preliminary 12/22/16 11:00 Acid Fast Bacilli Culture - Preliminary Pleural Fluid 12/22/16 11:00 Fungal Culture - Preliminary Pleural Fluid Assessment and Plan Plan: 1 dyspnea/hypoxemia, subacute with progressive worsening in respiratory status and genital. Chest x-ray that was done in the emergency department showed bilateral infiltrates worse on the left along with some left-sided pleural effusion and limited right-sided pleural effusion. Suspect a component of CHF in conjunction with possible pneumonia and at this point a postobstructive pneumonia needs to be considered especially the patient is bulky mediastinal lymphadenopathy involving lymph nodes along the left hilum On 12/20/2016, the patient has made minimal progress in her respiratory status. We will continue the current treatment which include a combination of bronchodilators, broad-spectrum antibiotics and systemic steroids and a follow- up chest x-ray was ordered for tomorrow. On 12/21/2015, patient continues to have some symptoms with minimal improvement, hence I recommended ultrasound of the chest, I may consider ultrasound guided thoracentesis. The purpose of that thoracentesis would be diagnostic and therapeutic at the same time. In the meantime we'll continue antibiotics. And diuretics. 2 Hodgkin's lymphoma with bulky axillary and mediastinal lymphadenopathy. The patient has also scattered subpleural and pulmonary nodules which have shown uptake along with a left-sided pleural effusion and this can be POTENTIALLY manifestations of Hodgkin's lymphoma. One concern is that the left hilar and infrahilar lymph nodes are causing mass effect and obstruction of the left lower lobe bronchus leading into a postobstructive pneumonia. 3 CHF with an ejection fraction of 35% 4 moderate severe aortic stenosis 5 coronary artery disease. The patient has had previous coronary intervention and stenting 6 COPD exacerbation 7 hypertension 8 chronic renal failure and based on previous creatinine monitoring the patient' s creatinine is now 2.40 9 hyponatremia 10 chronic anemia 11 sulfonylurea-induced hypoglycemia and the patient's hypoglycemic events have been treated appropriately 12 Hyperlipidemia 13 very impaired performance and functional status secondary to above-mentioned comorbidities 14 status post left-sided thoracentesis, fluid was nonbloody light yellow in color, sent for different diagnostic studies. The fluid may be transudate of based on the consistency of the fluid, but the final report is pending, and if his transudate of, it is cardiac in nature unless proven otherwise. Recommendation: Continue present treatment plan, I fully agree with hospice referral and plans. Overall prognosis is definitely poor and the patient seems to be quite frail. Time with Patient: Less than 30
--- NOTE | 2016-12-23 14:11 | P.PN ---
Subjective Principal diagnosis: Dyspnea This is a pleasant 81-year-old female with known history of ischemic cardiomyopathy, moderate to severe aortic stenosis, who has a recent diagnosis of Hodgkin's lymphoma, she presented to the hospital with symptoms of progressive dyspnea. Patient was seen and examined this morning, remaining about the same. Very tired and lethargic. Extremely weak. Discussions are being made regarding hospice. Objective - Vital Signs Vital signs: Vital Signs Temp 97.4 F L 12/23/16 04:00 Pulse 80 12/23/16 09:17 Resp 26 H 12/23/16 04:00 BP 106/53 12/23/16 08:00 Pulse Ox 90 L 12/23/16 08:00 Intake & Output 12/22/16 12/23/16 12/23/16 18:59 06:59 18:59 Intake Total 580 930 240 Output Total 1200 250 Balance -620 680 240 Weight 55.9 kg Intake: IV 580 0.9 NS 580 Intake, IV Titration 100 150 Amount Levofloxacin 500Mg-D5w 100 100 Pmx 500 mg In Dextrose/ Water 1 100ml.bag @ 100 mls/hr IVPB Q48H ERI Rx#: [id number] Piperacillin-Tazobactam 3 50 .375 gm In Dextrose/Water 1 50ml.bag @ 12.5 mls/hr IVPB Q12HR ERI Rx#: [id number] Oral 480 200 240 Output: Urine 450 250 Other 750 Other: Voiding Method Indwelling Catheter Indwelling Catheter Indwelling Catheter # Voids 1 1 # Bowel Movements 2 1 - Exam PHYSICAL EXAMINATION: HEENT: Head is atraumatic, normocephalic. Pupils equal, round. Neck is supple. There is no elevated jugular venous pressure. HEART EXAMINATION: S1 and S2 with systolic murmur is heard. CHEST EXAMINATION: Lungs are clear with diminished air entry to bilateral bases left greater than the right. ABDOMEN: Soft, nontender. Bowel sounds are heard. No organomegaly noted. EXTREMITIES: 2+ peripheral pulses with trace evidence of peripheral edema and no calf tenderness noted. NEUROLOGIC patient is tired, lethargic. - Labs CBC & Chem 7: 12/23/16 06:17 12/23/16 06:17 Labs: Abnormal Lab Results - Last 24 Hours (Table) 12/22/16 12/22/16 12/23/16 Range/Units 16:19 20:32 04:09 WBC (3.8-10.6) k/uL RBC (3.80-5.40) m/uL Hgb (11.4-16.0) gm/dL MCV (80.0-100.0) fL MCHC (31.0-37.0) g/dL RDW (11.5-15.5) % Neutrophils # (1.3-7.7) k/uL Lymphocytes # (1.0-4.8) k/uL Chloride (98-107) mmol/L Carbon Dioxide (22-30) mmol/L BUN (7-17) mg/dL Creatinine (0.52-1.04) mg/dL Glucose (74-99) mg/dL POC Glucose (mg/dL) 174 H 149 H 180 H (75-99) mg/dL Calcium (8.4-10.2) mg/dL Phosphorus (2.5-4.5) mg/dL Albumin (3.5-5.0) g/dL 12/23/16 12/23/16 12/23/16 Range/Units 06:13 06:17 06:17 WBC 12.2 H (3.8-10.6) k/uL RBC 3.53 L (3.80-5.40) m/uL Hgb 11.1 L (11.4-16.0) gm/dL MCV 102.0 H (80.0-100.0) fL MCHC 30.7 L (31.0-37.0) g/dL RDW 15.8 H (11.5-15.5) % Neutrophils # 11.5 H (1.3-7.7) k/uL Lymphocytes # 0.3 L (1.0-4.8) k/uL Chloride 93 L (98-107) mmol/L Carbon Dioxide 32 H (22-30) mmol/L BUN 77 H (7-17) mg/dL Creatinine 2.22 H (0.52-1.04) mg/dL Glucose 209 H (74-99) mg/dL POC Glucose (mg/dL) 198 H (75-99) mg/dL Calcium 13.0 H* (8.4-10.2) mg/dL Phosphorus 5.5 H (2.5-4.5) mg/dL Albumin 3.4 L (3.5-5.0) g/dL 12/23/16 Range/Units 11:33 WBC (3.8-10.6) k/uL RBC (3.80-5.40) m/uL Hgb (11.4-16.0) gm/dL MCV (80.0-100.0) fL MCHC (31.0-37.0) g/dL RDW (11.5-15.5) % Neutrophils # (1.3-7.7) k/uL Lymphocytes # (1.0-4.8) k/uL Chloride (98-107) mmol/L Carbon Dioxide (22-30) mmol/L BUN (7-17) mg/dL Creatinine (0.52-1.04) mg/dL Glucose (74-99) mg/dL POC Glucose (mg/dL) 220 H (75-99) mg/dL Calcium (8.4-10.2) mg/dL Phosphorus (2.5-4.5) mg/dL Albumin (3.5-5.0) g/dL Microbiology - Last 24 Hours (Table) 12/22/16 11:00 Gram Stain - Preliminary Pleural Fluid Body Fluid Culture - Preliminary 12/22/16 11:00 Acid Fast Bacilli Culture - Preliminary Pleural Fluid 12/22/16 11:00 Fungal Culture - Preliminary Pleural Fluid Assessment and Plan (1) Systolic CHF, acute on chronic Status: Acute (2) Ischemic cardiomyopathy Status: Acute (3) CAD (coronary artery disease) Status: Acute (4) Diabetes Status: Acute (5) HTN (hypertension) Status: Acute (6) Hyperlipemia Status: Acute (7) Anemia Status: Acute (8) Hodgkins lymphoma Status: Acute (9) Hypertension Status: Acute (10) Pleural effusion Status: Acute Plan: From cardiology's perspective, we will recommend to continue the patient on her current medications. Discussions are being made with the family today regarding hospice plans. DNP note has been reviewed, I agree with a documented findings and plan of care. Patient was seen and examined.
--- NOTE | 2016-12-23 14:52 | P.PN ---
Subjective Principal diagnosis: Dyspnea This is a pleasant 81-year-old female with known history of ischemic cardiomyopathy, moderate to severe aortic stenosis, who has a recent diagnosis of Hodgkin's lymphoma, she presented to the hospital with symptoms of progressive dyspnea. Patient was seen and examined this morning, remaining about the same. Very tired and lethargic. Extremely weak. Discussions are being made regarding hospice. Objective - Vital Signs Vital signs: Vital Signs Temp 97.4 F L 12/23/16 04:00 Pulse 73 12/23/16 12:00 Resp 26 H 12/23/16 04:00 BP 134/59 12/23/16 12:00 Pulse Ox 97 12/23/16 12:00 Intake & Output 12/22/16 12/23/16 12/23/16 18:59 06:59 18:59 Intake Total 580 930 240 Output Total 1200 250 Balance -620 680 240 Weight 55.9 kg Intake: IV 580 0.9 NS 580 Intake, IV Titration 100 150 Amount Levofloxacin 500Mg-D5w 100 100 Pmx 500 mg In Dextrose/ Water 1 100ml.bag @ 100 mls/hr IVPB Q48H ERI Rx#: [id number] Piperacillin-Tazobactam 3 50 .375 gm In Dextrose/Water 1 50ml.bag @ 12.5 mls/hr IVPB Q12HR ERI Rx#: [id number] Oral 480 200 240 Output: Urine 450 250 Other 750 Other: Voiding Method Indwelling Catheter Indwelling Catheter Indwelling Catheter # Voids 1 1 # Bowel Movements 2 1 - Labs CBC & Chem 7: 12/23/16 06:17 12/23/16 06:17 Labs: Abnormal Lab Results - Last 24 Hours (Table) 12/22/16 12/22/16 12/23/16 Range/Units 16:19 20:32 04:09 WBC (3.8-10.6) k/uL RBC (3.80-5.40) m/uL Hgb (11.4-16.0) gm/dL MCV (80.0-100.0) fL MCHC (31.0-37.0) g/dL RDW (11.5-15.5) % Neutrophils # (1.3-7.7) k/uL Lymphocytes # (1.0-4.8) k/uL Chloride (98-107) mmol/L Carbon Dioxide (22-30) mmol/L BUN (7-17) mg/dL Creatinine (0.52-1.04) mg/dL Glucose (74-99) mg/dL POC Glucose (mg/dL) 174 H 149 H 180 H (75-99) mg/dL Calcium (8.4-10.2) mg/dL Phosphorus (2.5-4.5) mg/dL Albumin (3.5-5.0) g/dL 12/23/16 12/23/16 12/23/16 Range/Units 06:13 06:17 06:17 WBC 12.2 H (3.8-10.6) k/uL RBC 3.53 L (3.80-5.40) m/uL Hgb 11.1 L (11.4-16.0) gm/dL MCV 102.0 H (80.0-100.0) fL MCHC 30.7 L (31.0-37.0) g/dL RDW 15.8 H (11.5-15.5) % Neutrophils # 11.5 H (1.3-7.7) k/uL Lymphocytes # 0.3 L (1.0-4.8) k/uL Chloride 93 L (98-107) mmol/L Carbon Dioxide 32 H (22-30) mmol/L BUN 77 H (7-17) mg/dL Creatinine 2.22 H (0.52-1.04) mg/dL Glucose 209 H (74-99) mg/dL POC Glucose (mg/dL) 198 H (75-99) mg/dL Calcium 13.0 H* (8.4-10.2) mg/dL Phosphorus 5.5 H (2.5-4.5) mg/dL Albumin 3.4 L (3.5-5.0) g/dL 12/23/16 Range/Units 11:33 WBC (3.8-10.6) k/uL RBC (3.80-5.40) m/uL Hgb (11.4-16.0) gm/dL MCV (80.0-100.0) fL MCHC (31.0-37.0) g/dL RDW (11.5-15.5) % Neutrophils # (1.3-7.7) k/uL Lymphocytes # (1.0-4.8) k/uL Chloride (98-107) mmol/L Carbon Dioxide (22-30) mmol/L BUN (7-17) mg/dL Creatinine (0.52-1.04) mg/dL Glucose (74-99) mg/dL POC Glucose (mg/dL) 220 H (75-99) mg/dL Calcium (8.4-10.2) mg/dL Phosphorus (2.5-4.5) mg/dL Albumin (3.5-5.0) g/dL Microbiology - Last 24 Hours (Table) 12/22/16 11:00 Gram Stain - Preliminary Pleural Fluid Body Fluid Culture - Preliminary 12/22/16 11:00 Acid Fast Bacilli Culture - Preliminary Pleural Fluid 12/22/16 11:00 Fungal Culture - Preliminary Pleural Fluid Assessment and Plan (1) Systolic CHF, acute on chronic Status: Acute (2) Ischemic cardiomyopathy Status: Acute (3) CAD (coronary artery disease) Status: Acute (4) Diabetes Status: Acute (5) HTN (hypertension) Status: Acute (6) Hyperlipemia Status: Acute (7) Anemia Status: Acute (8) Hodgkins lymphoma Status: Acute (9) Hypertension Status: Acute (10) Pleural effusion Status: Acute Plan: From cardiology's perspective, we will recommend to continue the patient on her current medications. Discussions are being made with the family today regarding hospice plans. DNP note has been reviewed, I agree with a documented findings and plan of care. Patient was seen and examined.
[2016-12-23] MEDS ORDERED: ACETAMINOPHEN SUPPOSITORY 650 MG SUPP RECTAL PRN (16:34)
[2016-12-23] MEDS ORDERED: ONDANSETRON 4 MG/2 ML VIAL IVP PRN (16:35)
[2016-12-23] MEDS ORDERED: BISACODYL 10 MG SUPP RECTAL PRN (16:35)
[2016-12-23] MEDS ORDERED: LORazepam 2 MG/ML SYRINGE IV PRN (16:40)
[2016-12-23 16:43] LABS: Glucose,Whole Blood 216 mg/dL (75-99)
[2016-12-23] MEDS ORDERED: SCOPOLAMINE 1.5MG/72HR PATCH TRANSDERM SCH (17:30)
[2016-12-23] MEDS ORDERED: MORPHINE SULFATE 100 MG in SODIUM CHLORIDE 0.9% 100 ML IV SCH (17:30)
[2016-12-23 19:27] VITALS: PULSE 75
[2016-12-24 00:57] VITALS: BP 118/73; TEMP 97.7
[2016-12-24] MEDS ORDERED: predniSONE 20 MG TAB PO SCH (09:00)
[2016-12-24 19:22] VITALS: RESP 6
[2016-12-25 15:04] LABS: Mis test requested (Non-blood) LDH Pleural effusion
== END 2016-12-24 09:00 | disposition hospice, inpatient (51) | DRG 291 ==
LOC: EC 17:53 → 6SEL 19:44 → 3SUR 12-23 19:44
PROVIDERS: ADMIT Internal Medicine; ATTEND Internal Medicine
PROC: 0T9B70Z Drainage of Bladder with Drainage Device, Via Natural or Artificial Opening (ICD-10-PCS; 2016-12-19)
PROC: 0W9B3ZX Drainage of Left Pleural Cavity, Percutaneous Approach, Diagnostic (ICD-10-PCS; principal; 2016-12-22)
DX: I13.0 Hypertensive heart and chronic kidney disease with heart failure and stage 1 through stage 4 chronic kidney disease, or unspecified chronic kidney disease (principal); J96.01 Acute respiratory failure with hypoxia; J18.9 Pneumonia, unspecified organism; N17.9 Acute kidney failure, unspecified; J90 Pleural effusion, not elsewhere classified; J44.0 Chronic obstructive pulmonary disease with (acute) lower respiratory infection; C81.98 Hodgkin lymphoma, unspecified, lymph nodes of multiple sites; E11.22 Type 2 diabetes mellitus with diabetic chronic kidney disease; I50.23 Acute on chronic systolic (congestive) heart failure; E87.1 Hypo-osmolality and hyponatremia; J44.1 Chronic obstructive pulmonary disease with (acute) exacerbation; N18.3 Chronic kidney disease, stage 3 (moderate); E11.649 Type 2 diabetes mellitus with hypoglycemia without coma; E87.8 Other disorders of electrolyte and fluid balance, not elsewhere classified; E87.5 Hyperkalemia; I35.0 Nonrheumatic aortic (valve) stenosis; E83.52 Hypercalcemia; Z51.5 Encounter for palliative care; Z66 Do not resuscitate; D64.9 Anemia, unspecified; I49.3 Ventricular premature depolarization; T38.3X5A Adverse effect of insulin and oral hypoglycemic [antidiabetic] drugs, initial encounter; I25.5 Ischemic cardiomyopathy; I25.10 Atherosclerotic heart disease of native coronary artery without angina pectoris; E86.0 Dehydration; E78.5 Hyperlipidemia, unspecified; I25.2 Old myocardial infarction; R63.4 Abnormal weight loss; R53.1 Weakness; F41.9 Anxiety disorder, unspecified; Z95.5 Presence of coronary angioplasty implant and graft; Z79.84 Long term (current) use of oral hypoglycemic drugs; Z79.899 Other long term (current) drug therapy; Z87.891 Personal history of nicotine dependence
CPT/HCPCS: 36415; 71010; 71020; 76604; 78582; 80048; 80053; 82550; 82553; 83036; 83615; 83735; 83880; 84100; 84157; 84484; 85025; 85379; 85610; 85730; 87040; 87070; 87102; 87116; 87205; 87206; 88108; 88305; 89050; 93005; 93306; 94640; 94760; 96365; 96372; 96375; 99291

== ENCOUNTER 2016-12-24 09:37 | Inpatient (IN) | payer MEDICAID, MEDICARE, OTHER ==
--- NOTE | 2016-12-24 15:34 | P.PN ---
Subjective Patient is currently in [facility]. She is obtunded. She is on a morphine drip. She appears comfortable. Family at bedside. Respiratory rate 6 -8/m. Objective - Exam General: The patient is obtunded Eye: there is normal conjunctiva bilaterally. Neck: The neck is supple, there is no JVD. Cardiovascular: Normal S1-S2, no S3-S4, no murmurs. Respiratory: With rhonchi Gastrointestinal: Abdomen is soft, nontender Musculoskeletal: There is no pedal edema. Skin: Skin is warm and dry Assessment and Plan Plan: This is a 81-year-old female with past medical history noted below significant for Hodgkin's lymphoma who presented to the hospital with worsening shortness of breath and was found to have an acute pneumonia. Computed tomography scan of the chest showed progression of mediastinal Lymphadenopathy. Patient was seen and evaluated by pulmonology, oncology, radiation therapy, and cardiology. She was not a candidate for any systemic chemotherapy or radiation therapy. Even her multiple medical problems and worsening clinical condition patient and her family elected to pursue comfort measures. She was enrolled in hospice. She is currently in a private home on a morphine drip. Family at bedside. Below is the list of her medical problems - Present on admission progressive symptomatic shortness of breath multifactorial acute exacerbation systolic congestive heart failure with underlying pneumonia and pleural effusion - Acute hypoxic respiratory failure - Suspected postobstructive pneumonia on broad-spectrum antibiotic - Recently diagnosed Hodgkin's lymphoma with bulky axillary and the lara lymphadenopathy: Seen and evaluated by heme/onc. Not a candidate for systemic chemotherapy given overall Debility - Moderate to severe aortic stenosis - History of coronary artery disease prior [place] - Hypertension essential - Systolic heart failure exacerbation: Present on admission, EF of 35-40%. seen and evaluated by cardiology. - Present on admission acute renal failure - Stage IIIB chronic kidney disease - Type 2 diabetes non-insulin requiring hemoglobin A1c 7.9 - Present on admission electrolyte abnormality hyponatremia, hyperkalemia - Hyperlipidemia
--- NOTE | 2017-01-08 14:57 | P.DS ---
Providers Date of admission: 12/24/16 09:37 Expected date of discharge: 12/24/16 Attending physician: Jason Gonzalez Primary care physician: Jason Gonzalez Hospital Course: Discharge diagnosis/ summary Preliminary cause of pneumonia and Hodgkin's lymphoma -Present on admission progressive symptomatic shortness of breath multifactorial acute exacerbation systolic congestive heart failure with underlying pneumonia and pleural effusion - Acute hypoxic respiratory failure - Suspected postobstructive pneumonia on broad-spectrum antibiotic - Recently diagnosed Hodgkin's lymphoma with bulky axillary and the lara lymphadenopathy: Seen and evaluated by heme/onc. Not a candidate for systemic chemotherapy given overall Debility - Moderate to severe aortic stenosis - History of coronary artery disease prior [place] - Hypertension essential - Systolic heart failure exacerbation: Present on admission, EF of 35-40%. seen and evaluated by cardiology. - Present on admission acute renal failure - Stage IIIB chronic kidney disease - Type 2 diabetes non-insulin requiring hemoglobin A1c 7.9 - Present on admission electrolyte abnormality hyponatremia, hyperkalemia - Hyperlipidemia Hospital course This is a 81-year-old female with past medical history noted below significant for Hodgkin's lymphoma who presented to the hospital with worsening shortness of breath and was found to have an acute pneumonia. Computed tomography scan of the chest showed progression of mediastinal Lymphadenopathy. Patient was seen and evaluated by pulmonology, oncology, radiation therapy, and cardiology. She was not a candidate for any systemic chemotherapy or radiation therapy. Even her multiple medical problems and worsening clinical condition patient and her family elected to pursue comfort measures. She was enrolled in hospice. She was given comfort care medications. Patient on 12/24/2016. Please refer to chart for any further details. Please note that I am only dictating this report for Dr. Gonzalez. I did not see or examine this patient during her hospitalization Patient Condition at Discharge: Undetermined Plan - Discharge Summary Discharge Medication List Isosorbide Mononitrate ER [Imdur] 30 mg PO DAILY 12/18/16 [History] Lisinopril [Zestril] 2.5 mg PO Q48H 12/18/16 [History] Loratadine [Claritin] 10 mg PO DAILY 12/18/16 [History] Metoprolol Succinate (ER) [Toprol Xl] 50 mg PO DAILY 12/18/16 [History] Pioglitazone [Actos] 30 mg PO DAILY 12/18/16 [History] Simvastatin [Zocor] 20 mg PO HS 12/18/16 [History] glipiZIDE [Glucotrol] 5 mg PO [id number] 12/18/16 [History] Discharge Disposition: - Preliminary Cause of Preliminary Cause of : Pneumonia and Hodgkin's lymphoma
== END 2016-12-24 20:17 | disposition expired | DRG 840 ==
LOC: 3SUR 09:37
PROVIDERS: ADMIT Internal Medicine; ATTEND Internal Medicine
DX: C81.94 Hodgkin lymphoma, unspecified, lymph nodes of axilla and upper limb (principal); J18.9 Pneumonia, unspecified organism; J96.01 Acute respiratory failure with hypoxia; I50.23 Acute on chronic systolic (congestive) heart failure; N17.9 Acute kidney failure, unspecified; I13.0 Hypertensive heart and chronic kidney disease with heart failure and stage 1 through stage 4 chronic kidney disease, or unspecified chronic kidney disease; E87.5 Hyperkalemia; E11.22 Type 2 diabetes mellitus with diabetic chronic kidney disease; E87.1 Hypo-osmolality and hyponatremia; Z51.5 Encounter for palliative care; Z66 Do not resuscitate; N18.3 Chronic kidney disease, stage 3 (moderate); I35.0 Nonrheumatic aortic (valve) stenosis; I25.10 Atherosclerotic heart disease of native coronary artery without angina pectoris; I25.2 Old myocardial infarction; E78.5 Hyperlipidemia, unspecified; Z79.84 Long term (current) use of oral hypoglycemic drugs; Z79.899 Other long term (current) drug therapy